=== PATIENT | female | born 1985 | race Caucasian/White ===

== ENCOUNTER 2020-03-16 13:25 | Emergency (ER) | payer SELFPAY ==
[2020-03-16 14:58] LABS: Absolute Lymphocytes (CBC) 1.5 K/uL (0.7-4.9); Basophils % 0.4 % (0-1.3); Lymphocytes % 14.4 % (15.3-44.8); MPV 7.2 fL (7.6-11.3); RBC Red Blood Cell Count 3.67 M/uL (3.86-4.86)
[2020-03-16 15:10] LABS: ALT/SGPT 18 U/L (12-78); AST/SGOT 22 U/L (15-37); Albumin 3.7 g/dL (3.4-5.0); Alkaline Phosphatase 72 U/L (45-117); BUN Blood Urea Nitrogen 11 mg/dL (7-18); Bicarbonate 27 mmol/L (21-32); Bilirubin Direct 0.3 mg/dL (0-0.2); Bilirubin Total 0.3 mg/dL (0.2-1.0); Glucose Level 93 mg/dL (74-106); Lipase 109 U/L (73-393); Potassium 4.1 mmol/L (3.5-5.1); Protein, Total 7.6 g/dL (6.4-8.2); Sodium Level 140 mmol/L (136-145)
[2020-03-16] MEDS ORDERED: FAMOTIDINE 20 MG/2 ML VIAL IV ONE (15:15)
--- NOTE | 2020-03-16 16:45 | RAD REPORT ---
EXAM DESCRIPTION: CTAbdomen Pelvis W Contrast - 03/16/2020 4:33 pm CLINICAL HISTORY: Abdominal pain. Abd pain;GI bleed COMPARISON: No comparisons TECHNIQUE: Biphasic CT imaging of the abdomen and pelvis was performed with 100 ml non-ionic IV cont rast. All CT scans are performed using dose optimization technique as appropriate and may include automated exposure control or mA/KV adjustment according to patient size. FINDINGS: The lung bases are clear.Postsurgical changes gastric bypass noted. Cholecystectomy. The liver, spleen, pancreas, adrenal glands and kidneys are within normal limits. No bowel obstruction, free air, free fluid or abscess. The appendix is normal. No evidence of signi ficant lymphadenopathy. No suspicious bony findings. IMPRESSION: No acute intra-abdominal or pelvic finding.
[2020-03-16 16:52] LABS: Urine Blood NEGATIVE (NEG); Urine Glucose NEGATIVE (NEG); Urine Protein NEGATIVE (NEG); Urine Specific Gravity 1.025 (1.005-1.030)
--- NOTE | 2020-03-16 17:20 | EDPHYS ---
Physician Documentation [facility] Name: Sissy Brown Age: 34 yrs Sex: Female : 1985 Arrival Date: 03/16/2020 Time: 13:33 Bed 17 Private MD: ED Physician Santos Man HPI: 03/16 17:39 This 34 yrs old Female presents to ER via Ambulatory with complaints of kdr Abnormal Lab Results, Black/Tarry Stools. 17:39 The patient presents to the emergency department with rectal bleeding, a moderate kdr amount, melena, with multiple such episodes, 5 times since symptom onset. Onset: The symptoms/episode began/occurred 2 day(s) ago. Abdominal pain: described as achy, burning, crampy, intermittent, waxing and waning, located in the epigastric area, that does not radiate. Modifying factors: The symptoms are alleviated by nothing, the symptoms are aggravated by nothing. Associated signs and symptoms: Pertinent positives: General malaise. Severity of symptoms: At their worst the symptoms were mild just prior to arrival, in the emergency department the symptoms are unchanged. The patient has experienced similar episodes in the past, a few times. The patient has been recently seen by a physician: the patient's primary care provider, had blood draw earlier in the week and noted a 9.0 Hgb. Historical: - Allergies: 13:46 Azithromycin; ll1 13:46 ersidol; ll1 - PMHx: 13:46 bleeding ulcer; ll1 - PSHx: 13:46 Cholecystectomy; ll1 - Immunization history:: Flu vaccine is not up to date. - Social history:: Smoking status: Patient denies any tobacco usage or history of. ROS: 17:39 Constitutional: Negative for fever, chills, and weight loss, Eyes: Negative for injury, kdr pain, redness, and discharge, ENT: Negative for injury, pain, and discharge, Neck: Negative for injury, pain, and swelling, Cardiovascular: Negative for chest pain, palpitations, and edema, Respiratory: Negative for shortness of breath, cough, wheezing, and pleuritic chest pain, Back: Negative for injury and pain, : Negative for injury, bleeding, discharge, and swelling, MS/Extremity: Negative for injury and deformity, Skin: Negative for injury, rash, and discoloration, Neuro: Negative for headache, weakness, numbness, tingling, and seizure activity. Psych: Negative for depression, anxiety, suicide ideation, homicidal ideation, and hallucinations, Allergy/Immunology: Negative for hives, rash, and allergies, Endocrine: Negative for neck swelling, polydipsia, polyuria, polyphagia, and marked weight changes, Hematologic/Lymphatic: Negative for swollen nodes, abnormal bleeding, and unusual bruising. 17:39 Abdomen/GI: Positive for abdominal pain, nausea, abdominal cramps, black/tarry stool, rectal bleeding, Negative for vomiting, abdominal distension, dysphagia, hematemesis, bowel incontinence. Exam: 17:39 Constitutional: This is a well developed, well nourished patient who is awake, alert, kdr and in no acute distress. Head/Face: Normocephalic, atraumatic. Eyes: Pupils equal round and reactive to light, extra-ocular motions intact. Lids and lashes normal. Conjunctiva and sclera are non-icteric and not injected. Cornea within normal limits. Periorbital areas with no swelling, redness, or edema. Neck: Trachea midline, no thyromegaly or masses palpated, and no cervical lymphadenopathy. Supple, full range of motion without nuchal rigidity, or vertebral point tenderness. No Meningismus. Chest/axilla: Normal chest wall appearance and motion. Nontender with no deformity. No lesions are appreciated. Cardiovascular: Regular rate and rhythm with a normal S1 and S2. No gallops, murmurs, or rubs. Normal PMI, no JVD. No pulse deficits. Respiratory: Lungs have equal breath sounds bilaterally, clear to auscultation and percussion. No rales, rhonchi or wheezes noted. No increased work of breathing, no retractions or nasal flaring. Back: No spinal tenderness. No costovertebral tenderness. Full range of motion. Skin: Warm, dry with normal turgor. Normal color with no rashes, no lesions, and no evidence of cellulitis. MS/ Extremity: Pulses equal, no cyanosis. Neurovascular intact. Full, normal range of motion. Neuro: Awake and alert, GCS 15, oriented to person, place, time, and situation. Cranial nerves II-XII grossly intact. Motor strength 5/5 in all extremities. Sensory grossly intact. Cerebellar exam normal. Normal gait. Psych: Awake, alert, with orientation to person, place and time. Behavior, mood, and affect are within normal limits. 17:39 Abdomen/GI: Inspection: abdomen appears normal, Bowel sounds: diminished, in all quadrants, Palpation: soft, mild abdominal tenderness, in the epigastric area, Rectal exam: rectal tone normal, Stool: guaiac positive, hemorrhoid(s), are not appreciated, mass, is not appreciated, swelling, is not appreciated, tenderness, is not appreciated. Vital Signs: 13:43 Pulse 93; Resp 16; Temp 99.3; Pulse Ox 98% ; ll1 13:46 BP 144 / 106; Weight 65.77 kg; Height 5 ft. 4 in. (162.56 cm); Pain 0/10; ll1 14:50 BP 147 / 90; Pulse 86; Resp 14; Pulse Ox 100% on R/A; vg1 16:00 BP 147 / 92; Pulse 93; Resp 16; Pulse Ox 100% on R/A; vg1 17:00 BP 148 / 92; Pulse 80; Resp 14; Pulse Ox 100% on R/A; vg1 13:46 Body Mass Index 24.89 (65.77 kg, 162.56 cm) ll1 MDM: 17:19 Patient medically screened. kdr 17:39 Data reviewed: vital signs, nurses notes, lab test result(s), radiologic studies. kdr Counseling: I had a detailed discussion with the patient and/or guardian regarding: the historical points, exam findings, and any diagnostic results supporting the discharge/admit diagnosis, lab results, radiology results, the need for outpatient follow up. 03/16 14:32 Order name: Basic Metabolic Panel; Complete Time: 15:53 kdr 03/16 14:32 Order name: CBC with Diff; Complete Time: 15:53 kdr 03/16 14:32 Order name: Hepatic Function; Complete Time: 15:53 kdr 03/16 14:32 Order name: Lipase; Complete Time: 15:53 kdr 03/16 14:32 Order name: Type And Screen; Complete Time: 15:53 kdr 03/16 15:53 Order name: Occult Blood--Ancillary; Complete Time: 17:18 sv 03/16 14:32 Order name: IV Saline Lock; Complete Time: 14:50 kdr 03/16 15:56 Order name: CT Abd/Pelvis - IV Contrast Only; Complete Time: 17:18 kdr 03/16 16:33 Order name: Urine Dipstick--Ancillary (enter results); Complete Time: 17:18 eb 03/16 16:33 Order name: Urine --Ancillary (enter results); Complete Time: 17:18 eb 03/16 17:36 Order name: ABO/RH no charge [facility] 03/16 14:32 Order name: Labs collected and sent; Complete Time: 14:50 kdr Administered Medications: 15:04 Drug: Pepcid 20 mg Route: IVP; Site: right wrist; vg1 17:51 Follow up: Response: No adverse reaction vg1 17:52 Drug: Tylenol 650 mg Route: PO; vg1 17:52 Follow up: Response: Medication administered at discharge. vg1 17:52 Drug: Zofran (Ondansetron) 4 mg Route: IVP; Site: right wrist; vg1 17:52 Follow up: Response: Medication administered at discharge. vg1 Disposition: 03/16/20 17:19 Discharged to Home. Impression: Melena, Upper GI Bleed. - Condition is Stable. - Discharge Instructions: Gastrointestinal Bleeding, [id number]. - Prescriptions for Protonix 40 mg Oral Tablet - take 1 tablet by ORAL route once daily; 30 tablet. Pepcid 20 mg Oral Tablet - take 1 tablet by ORAL route once daily; 20 tablet. Zofran 4 mg Oral Tablet - take 1 tablet by ORAL route every 4-6 hours As needed; 12 tablet. Tramadol 50 mg Oral Tablet - take 1 tablet by ORAL route every 8 hours as needed; 12 tablet. - Medication Reconciliation Form, Thank You Letter form. - Follow up: Private Physician; When: 2 - 3 days; Reason: If symptoms return, Further diagnostic work-up, Recheck today's complaints, Continuance of care, Re-evaluation by your physician. - Problem is an acute exacerbation. - Symptoms are unchanged. Signatures: Dispatcher [employer] [facility] Santos Man MD MD kdr Garcia, Victoria RN RN vg1 Eufemia Orr RN RN ll1 Corrections: (The following items were deleted from the chart) 17:53 17:19 03/16/2020 17:19 Discharged to Home. Impression: Melena; Upper GI Bleed. vg1 Condition is Stable. Forms are Medication Reconciliation Form, Thank You Letter, Antibiotic Education, Prescription Opioid Use. Follow up: Private Physician; When: 2 - 3 days; Reason: If symptoms return, Further diagnostic work-up, Recheck today's complaints, Continuance of care, Re-evaluation by your physician. Problem is an acute exacerbation. Symptoms are unchanged. kdr
--- NOTE | 2020-03-16 17:20 | ER ---
Nurse's Notes [facility] Name: Sissy Brown Age: 34 yrs Sex: Female : 1985 Arrival Date: 03/16/2020 Time: 13:33 Bed 17 Private MD: Diagnosis: Melena;Upper GI Bleed Presentation: 03/16 13:43 Chief complaint: Patient states: Black stools today. Weak and fatigued for 2 days. HGB ll1 9 on Wednesday. Coronavirus screen: Client denies travel out of the [place] in the last 14 days. At this time, the client does not indicate any symptoms associated with coronavirus-19. Ebola Screen: Patient denies travel to an Ebola-affected area in the 21 days before illness onset. Initial Sepsis Screen: Does the patient meet any 2 criteria? HR > 90 bpm. No. Patient's initial sepsis screen is negative. Does the patient have a suspected source of infection? Yes: Acute abdominal pain. Risk Assessment: Do you want to hurt yourself or someone else? Patient reports no desire to harm self or others. Onset of symptoms was March 15, 2020. 13:43 Method Of Arrival: Ambulatory ll1 13:43 Acuity: SANTIAG[place] 3 ll1 Historical: - Allergies: 13:46 Azithromycin; ll1 13:46 ersidol; ll1 - PMHx: 13:46 bleeding ulcer; ll1 - PSHx: 13:46 Cholecystectomy; ll1 - Immunization history:: Flu vaccine is not up to date. - Social history:: Smoking status: Patient denies any tobacco usage or history of. Screenin:57 Abuse screen: Denies threats or abuse. Nutritional screening: No deficits noted. vg1 Tuberculosis screening: No symptoms or risk factors identified. Fall Risk None identified. Assessment: 14:50 General: Appears in no apparent distress. comfortable, Behavior is calm, cooperative. vg1 Pain: Complains of pain in epigastric area and right upper quadrant Pain at worst was 4 out of 10 on a pain scale. Neuro: Level of Consciousness is awake, alert, obeys commands, Oriented to person, place, time, situation. Cardiovascular: Patient's skin is warm and dry. Respiratory: Airway is patent Respiratory effort is even, unlabored. GI: Abdomen is flat, Bowel sounds present X 4 quads. Abd is soft X 4 quads Abdomen is tender to palpation in epigastric area and right upper quadrant Reports nausea, Patient currently denies vomiting. : No signs and/or symptoms were reported regarding the genitourinary system. EENT: No signs and/or symptoms were reported regarding the EENT system. Derm: Skin is intact, is healthy with good turgor. Musculoskeletal: Circulation, motion, and sensation intact. 17:18 Reassessment: Patient appears in no apparent distress at this time. Patient and/or vg1 family updated on plan of care and expected duration. Pain level reassessed. Patient is alert, oriented x 3, equal unlabored respirations, skin warm/dry/pink. Patient states has a headache and would like some Tylenol also stated is feeling a little nauseated. Provider Notified. 17:50 Reassessment: Received VO from Dr Estrada to administer Tylenol 650 mg PO x1 and Zofran vg1 4mg IVP x1. Vital Signs: 13:43 Pulse 93; Resp 16; Temp 99.3; Pulse Ox 98% ; ll1 13:46 BP 144 / 106; Weight 65.77 kg; Height 5 ft. 4 in. (162.56 cm); Pain 0/10; ll1 14:50 BP 147 / 90; Pulse 86; Resp 14; Pulse Ox 100% on R/A; vg1 16:00 BP 147 / 92; Pulse 93; Resp 16; Pulse Ox 100% on R/A; vg1 17:00 BP 148 / 92; Pulse 80; Resp 14; Pulse Ox 100% on R/A; vg1 13:46 Body Mass Index 24.89 (65.77 kg, 162.56 cm) ll1 ED Course: 13:33 Patient arrived in ED. rg4 13:45 Triage completed. ll1 13:46 Arm band placed on. ll1 14:31 Santos Man MD is Attending Physician. kdr 14:35 Mamta Macario RN is Primary Nurse. vg1 14:38 Initial lab(s) drawn, by me, sent to lab. T\T\S collected, blood band applied to patient. jp3 Inserted saline lock: 20 gauge in right wrist, using aseptic technique. Blood collected. Patient maintains SpO2 saturation greater than 95% on room air. 14:49 Bed in low position. Call light in reach. Side rails up X 1. Warm blanket given. Verbal jp3 reassurance given. Pulse ox on. NIBP on. 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 sv 16:[address] via wheelchair. vg1 16:33 CT Abd/Pelvis - IV Contrast Only In Process Unspecified. EDMS 16:35 CT completed. Patient tolerated procedure well. Patient moved back from CT. mw3 17:53 IV discontinued, intact, bleeding controlled, No redness/swelling at site. Pressure vg1 dressing applied. Administered Medications: 15:04 Drug: Pepcid 20 mg Route: IVP; Site: right wrist; vg1 17:51 Follow up: Response: No adverse reaction vg1 17:52 Drug: Tylenol 650 mg Route: PO; vg1 17:52 Follow up: Response: Medication administered at discharge. vg1 17:52 Drug: Zofran (Ondansetron) 4 mg Route: IVP; Site: right wrist; vg1 17:52 Follow up: Response: Medication administered at discharge. vg1 Outcome: 17:19 Discharge ordered by . kdr 17:53 Discharged to home vg1 17:53 Discharged to home ambulatory. 17:53 Condition: stable 17:53 Discharge instructions given to patient, Instructed on discharge instructions, follow up and referral plans. medication usage, Demonstrated understanding of instructions, follow-up care, medications, Prescriptions given X 4. 17:53 Patient left the ED. vg1 Signatures: Dispatcher [employer] EDMS Mi Morales RN RN sv Rittger, Kevin, MD MD kdr Garcia, Rubi rg4 Patricia Brush mw3 Renato Ramirez jp3 Mamta Macario RN RN vg1 Eufemia Orr RN RN ll1
[2020-03-16] MEDS ORDERED: ONDANSETRON 4 MG/2 ML VIAL ONE (17:42)
[2020-03-16] MEDS ORDERED: ACETAMINOPHEN 325 MG TABLET ONE (17:42)
[2020-03-16 18:01] VITALS: TEMP 99.3
[2020-03-16 18:03] VITALS: O2SAT 100
[2020-03-16 18:06] VITALS: BP 148/92
== END 2020-03-16 17:53 | disposition home or self-care (01) ==
LOC: ER 13:25
DX: K92.2 Gastrointestinal hemorrhage, unspecified (principal); Z88.1 Allergy status to other antibiotic agents; Z88.8 Allergy status to other drugs, medicaments and biological substances
CPT/HCPCS: 36415; 74177; 80048; 80076; 81003; 81025; 82272; 83690; 85025; 86850; 86900; 86901; 96374; 96375; 99285; J2405; Q9967

== ENCOUNTER 2020-07-22 16:56 | Inpatient (IN) | payer SELFPAY ==
--- OUTSIDE RECORDS SUMMARY | 2020-07-22 16:58 | XMS REPORT | Continuity of Care Document ---
:1985 Author Organization Formerly [facility] t Address [address] [place] [address] Care Team Providers Name Role Phone Dhruv Antonina Attending Clinician [phone] Problems This patient has no known problems. Allergies, Adverse Reactions, Alerts Allergy Allergy Status Severity Reaction(s) Onset Inactive Treating Comm ents Source Name Type Date Date Clinician KEFLEX Drug Active High hives, [facility] allergy Criticali throws up. 09-03 Co [facility]muni (disorde ty 00:00: ty r) 00 Health ZITHROMA Drug Active High hives [facility] X allergy Criticali 09-03 Commun i (disorde ty 00:00: ty r) 00 Health Social History Social Habit Start Date Stop Date Quantity Comments Source albumin, serum 2020-03-11 2020-03-11 4.4 g/dL [facility] 11:44:00 11:44:00 Health time of call 2020-03-08 2020-03-08 03/08/2020 10:32 AM [facility] Community 10:32:47 10:32:47 Health tobacco use 2019-12-06 2019-12-06 Currently [facility] (cigarettes, 17:43:03 17:43:03 Health cigar, chew, pipe) drug use 2019-09-04 2019-09-04 Never [facility] ty 09:50:41 09:50:41 Health alcohol use 2019-09-04 2019-09-04 Previously [facility] 09:50:41 09:50:41 Health if the patient is 2019-09-04 2019-09-04 No [facility] using/has used a 09:50:41 09:50:41 Health vaping item, Current, Former, Never Used, Not asked social history 2019-09-04 2019-09-04 reviewed today [facility] reviewed E&M 09:50:41 09:50:41 Health social history E&M 2019-09-04 2019-09-04 Pt's mom lives in [facility] 09:50:41 09:50:41 [place] pt's Health dad lives in [place] but does not have a relationship with them. Pt talks with her brothers every now and then.She is 1 of 3 siblings, middle child. for 10 years, 2 oldest children from first marriage. He (they were , medical issues). Pt lives with her three kids (12, 11, 2) and boyfriend. In [place], [place]. Pt is unemployed. Pt has an associate degree with a medical assistance certificate.Sexual orientation: Heterosexual. Pt likes to spend time with her kids, listen to music, likes to dance. The patient denies any hx of legal problems, or current problems with the law. Not mu-ism. sexual orientation 2019-09-04 2019-09-04 Heterosexual [facility] 09:50:41 09:50:41 Health home/family 2019-09-04 2019-09-04 Pt lives with her [facility] situation, 09:50:41 09:50:41 three kids (12, 11, Healt h assessment 2) and boyfriend. In [place], [place]. family support 2019-09-04 2019-09-04 Pt's mom lives in [facility] 09:50:41 09:50:41 [place] pt's Health dad lives in [place] but does not have a relationship with them. Pt talks with her brothers every now and then.She is 1 of 3 siblings, middle child. for 10 years, 2 oldest children from first marriage. He (they were , medical issues). Smoking Status Start Date Stop Date Source Never smoked tobacco (finding) [facility] Medications Ordered Filled Start Stop Current Ordering Indication Dosage Frequency Signature Comments Components Source Medication Medication Date Date Medication? Clinician (SIG) Name Name (CLONAZEPAM Yes Chun Sarkar Take 1/2 [facility] ) 0.5 MG 9 Dhruv -1 tab by Co mmuni TABS 00:00: mouth ty 00 daily only Health as needed for anxiety. PROZAC 2019- Yes Chun Sarkar 1{Capsu 1xD Take 1 [facility] (FLUOXETINE 10-31 Dhruv le} capsule by Communi HCL) 20 MG 00:00: mouth ty CAPS 00 daily for Health a total dose of 30mg/day. PROZAC 2019- Yes Chun Sarkar Take 1 Leg acy (FLUOXETINE - Dhruv capsule by Communi HCL) 10 MG 00:00: mouth ty CAPS 00 daily for Health a total dose of 30mg/day. (HYDROXYZIN 2020- No Chun Sarkar Take 1/2-1 [facility] E HCL) 25 09-03 Dhruv tab by Com cecilia MG TABS 00:00: 00:00 mouth ty 00 :00 twice a Health day only as needed for anxiety or sleep. PROZAC 2020- No Chun Sarkar 2{Capsu 1xD Take 2 [facility] (FLUOXETINE 09-03 Dhruv le} capsules Communi HCL) 10 MG 00:00: 00:00 by mouth ty CAPS 00 :00 daily. Health Procedures Procedure Date / Time Performed Performing Clinician [facility] e Urine Drug 2020-02-20 15:52:59 Chun Bartlett [facility] Vnhseh-Ld-Kzdtk Health Diagnostic evaluation 2019-09-04 10:46:41 Chun Bartlett [facility] with medical - [id number] Health Encounters Start End Encounter Admission Attending Care Care Encounter Source Date/Time Date/Time Type Type Clinicians Facility Department ID 2020-05-09 2020-05-09 Office Dhruv [facility] [place] [id number] 02 [facility] 00:00:00 00:00:00 Visit Chun Sarkar [id number] Com cecilia ty Health 2020-04-18 2020-04-18 Office Dhruv [facility] [place] [id number] [facility] 00:00:00 00:00:00 Visit Chun Sarkar [id number] Com cecilia ty Health 2020-04-02 2020-04-02 Emergency [facility] [id number] 21:24:00 21:25:00 [place] [id number] [place] [id number] [place] [id number] 2020-02-20 2020-02-20 Office Dhruv [facility] [place] [id number] [facility] 00:00:00 00:00:00 Visit Chun Sarkar [id number] Com cecilia ty Health 2020-01-16 2020-01-16 Office Dhruv [facility] [place] [id number] [facility] 00:00:00 00:00:00 Visit Chun Sarkar [id number] Com cecilia ty Health 2019-12-06 2019-12-06 Office Dhruv [facility] [place] [id number] [facility] 00:00:00 00:00:00 Visit Chun Sarkar [id number] Com cecilia ty Health 2019-11-01 2019-11-[address] [facility] [id number] [facility] 00:00:00 00:00:00 Visit Chun Sarkar [id number] Com cecilia ty Health 2019-09-04 2019-09-[address] [facility] [id number] [facility] 00:00:00 00:00:00 Visit Chun Sarkar [id number] Com [facility] Health Results Test Description Test Time Test Comments Results Result Comments Source thyroid stimulating hormone, serum 2020-03-11 11:44:00 Test Item Value Reference Range Interpretation Comme nts thyroid stimulating hormone, serum (test code = 0.992 u[IU]/mL 0.45 0-4.500 3016-3) [facility] [id number] 11:44:00 Test Item Value Reference Range Interpretation Comments LDL cholesterol, serum (test code = 50 mg/dL 0-99 9-1) [facility] low density [id number] 11:44:00 Test Item Value Reference Range Interpretation Comments very low density lipoproteins (test 21 mg/dL 5-40 code = 2091-7) [facility], [id number] 11:44:00 Test Item Value Reference Range Interpretation Comments HDL cholesterol, serum (test code = 86 mg/dL >39 5-9) [facility], serum, [id number] 11:44:00 Test Item Value Reference Range Interpretation Comments triglyceride, serum, fasting (test 122 mg/dL 0-149 code = 2571-8) [facility], [id number] 11:44:00 Test Item Value Reference Range Interpretation Comments cholesterol, serum (test code = 157 mg/dL 747-985 3636-3) [facility] Healthalanine aminotransferase (SGPT), [id number] 11:44:00 Test Item Value Reference Range Interpretation Comments alanine aminotransferase (SGPT), serum 11 1/L 0-32 (test code = 1742-6) [facility]aspartate aminotransferase (SGOT), [id number] 11:44:00 Test Item Value Reference Range Interpretation Comments aspartate aminotransferase (SGOT), 17 1/L 0-40 serum (test code = 1920-8) [facility]alkaline phosphatase, [id number] 11:44:00 Test Item Value Reference Range Interpretation Comments alkaline phosphatase, serum (test code 81 1/L 39-117 = 1783-0) [facility]bilirubin, serum, [id number] 11:44:00 Test Item Value Reference Range Interpretation Comments bilirubin, serum, total (test code <0.2 mg/dL 0.0-1.2 = 1975-2) [facility] Healthalbumin/globulin ratio, [id number] 11:44:00 Test Item Value Reference Range Interpretation Comments albumin/globulin ratio, 1.6 (unknown unit) 1.2-2.2 serum (test code = 1759-0) [facility] Healthglobulin, [id number] 11:44:00 Test Item Value Reference Range Interpretation Comments globulin, serum (test code 2.7 (unknown unit) 1.5-4.5 = 2336-6) [facility] Healthalbumin, [id number] 11:44:00 Test Item Value Reference Range Interpretation Comments albumin, serum (test code = 1751-7) 4.4 g/dL 3.8-4.8 [facility] Healthprotein, total, [id number] 11:44:00 Test Item Value Reference Range Interpretation Comments protein, total, serum (test code = 7.1 g/dL 6.0-8.5 2885-2) [facility]calcium, [id number] 11:44:00 Test Item Value Reference Range Interpretation Comments calcium, serum (test code = 1999-8) 9.0 mg/dL 8.7-10.2 [facility]carbon dioxide, venous [id number] 11:44:00 Test Item Value Reference Range Interpretation Comments carbon dioxide, venous blood (test 23 mmol/L 20- code = 2027-1) [facility]chloride, [id number] 11:44:00 Test Item Value Reference Range Interpretation Comments chloride, serum (test code = 101 mmol/L 96-106 2075-0) [facility]potassium, [id number] 11:44:00 Test Item Value Reference Range Interpretation Comments potassium, serum (test code = 4.4 mmol/L 3.5-5.2 2823-3) [facility] Hospitalsodium, [id number] 11:44:00 Test Item Value Reference Range Interpretation Comments sodium, serum (test code = 2951-2) 140 mmol/L 134-144 [facility] Hospitalurea nitrogen/creatinine ratio, [id number] 11:44:00 Test Item Value Reference Range Interpretation Comments urea nitrogen/creatinine 11 (unknown unit) 9-23 ratio, serum (test code = 3097-3) [facility] HealtheGFR if [id number] 11:44:00 Test Item Value Reference Range Interpretation Comments eGFR if 133 mL/min/{1.73 m2} >59 (test code = 15646-9) [facility] HospitalEstimated Glomerular Filtration Rate (calc)2020-03-11 11:44:00 Test Item Value Reference Range Interpretation Comments Estimated Glomerular 115 mL/min/{1.73 m2} >59 Filtration Rate (calc) (test code = 84253-8) [facility]creatinine, [id number] 11:44:00 Test Item Value Reference Range Interpretation Comments creatinine, serum (test code = 0.70 mg/dL 0.57-1.00 2160-0) [facility]urea nitrogen, [id number] 11:44:00 Test Item Value Reference Range Interpretation Comments urea nitrogen, blood (test code = 8 mg/dL 6-20 3094-0) [facility]blood glucose, [id number] 11:44:00 Test Item Value Reference Range Interpretation Comments blood glucose, random (test code = 93 mg/dL 65-99 2339-0) [facility] Hospitalimmature granulocytes, percentage of total cells, blood 2020-03-11 11:44:00 Test Item Value Reference Range Interpretation Comments immature granulocytes, percentage of 0 % total cells, blood (test code = 90014-2) [facility] Healthbasophil count, [id number] 11:44:00 Test Item Value Reference Range Interpretation Comments basophil count, absolute (test 0.0 x10E3/uL 0.0-0.2 code = 25654-4) [facility] HealthEosinophil Absolute [id number] 11:44:00 Test Item Value Reference Range Interpretation Comments Eosinophil Absolute Count (test 0.0 X10E3/UL 0.0-0.4 code = 15182-0) [facility] Hospitalmonocyte count, blood, [id number] 11:44:00 Test Item Value Reference Range Interpretation Comments monocyte count, blood, automated 0.8 X10E3/UL 0.1-0.9 (test code = 742-7) [facility] Hospitallymphocyte count, blood, [id number] 11:44:00 Test Item Value Reference Range Interpretation Comments lymphocyte count, blood, 2.0 X10E3/UL 0.7-3.1 automated (test code = 731-0) [facility] HospitalAbsolute [id number] 11:44:00 Test Item Value Reference Range Interpretation Comments Absolute Neutrophils (test code 7.5 X10E3/UL 1.4-7.0 H = 22394-5) [facility] Hospitalbasophils as percent of blood [id number] 11:44:00 Test Item Value Reference Range Interpretation Comments basophils as percent of blood 0 % leukocytes (test code = 707-0) [facility] Healtheosinophils as percent of blood waowrribjh0317-28-04 11:44:00 Test Item Value Reference Range Interpretation Comments eosinophils as percent of blood 0 % leukocytes (test code = 713-8) [facility] Healthmonocytes as percent of blood [id number] 11:44:00 Test Item Value Reference Range Interpretation Comments monocytes as percent of blood 8 % leukocytes (test code = 5905-5) [facility] Hospitallymphocytes as percent of blood [id number] 11:44:00 Test Item Value Reference Range Interpretation Comments lymphocytes as percent of blood 19 % leukocytes (test code = 736-9) [facility] Hospitalneutrophils as percent of blood [id number] 11:44:00 Test Item Value Reference Range Interpretation Comments neutrophils as percent of blood 73 % leukocytes (test code = 770-8) [facility] Hospitalplatelet [id number] 11:44:00 Test Item Value Reference Range Interpretation Comments platelet count (test code = 434 X10E3/UL 150-450 777-3) [facility] Hospitalred blood cell distribution [id number] 11:44:00 Test Item Value Reference Range Interpretation Comments red blood cell distribution width 16.0 % 11.7-15.4 H (test code = 788-0) [facility] corpuscular hemoglobin concentration, [id number] 11:44:00 Test Item Value Reference Range Interpretation Comments mean corpuscular hemoglobin 30.3 G/DL 31.5-35.7 L concentration, RBC (test code = 786-4) [facility] corpuscular hemoglobin, [id number] 11:44:00 Test Item Value Reference Range Interpretation Comments mean corpuscular hemoglobin, RBC 23.3 pg 26.6-33.0 L (test code = 785-6) [facility] corpuscular volume, [id number] 11:44:00 Test Item Value Reference Range Interpretation Comments mean corpuscular volume, RBC (test code 77 fL 79-97 L = 787-2) [facility] Hospitalhematocrit, [id number] 11:44:00 Test Item Value Reference Range Interpretation Comments hematocrit, blood (test code = 4544-3) 29.7 % 34.0-46.6 L [facility] Hospitalhemoglobin, [id number] 11:44:00 Test Item Value Reference Range Interpretation Comments hemoglobin, blood (test code = 9.0 g/dL 11.1-15.9 L 718-7) [facility] Hospitalerythrocyte (RBC) [id number] 11:44:00 Test Item Value Reference Range Interpretation Comments erythrocyte (RBC) count (test 3.87 X10E6/UL 3.77-5.28 code = 789-8) [facility] Hospitalleukocyte count, [id number] 11:44:00 Test Item Value Reference Range Interpretation Comments leukocyte count, blood (test 10.4 X10E3/UL 3.4-10.8 code = 6690-2) [facility] HospitalUS PREG 1ST TRIM SINGLE LESS THAN 14 WEEKSCLINICAL INDICATION: O20.0 Threatened abortionTECHNIQUE: Transabdominal and transvaginal real time and doppler imaging of the female gravid pelvis are performed on the [employer].COMPARISON: 10/05/2016. FINDINGS:Uterus: 10.6 x 6.2 x 6.9 cm. Single viable IUP with crown rump length of 8.5 cm consistent with a gestational age of 7 weeks. Mean sac diameter consistent with a gestational age of 9 weeks, 5 days. Normal intrauterine growth compared to 10/05/2016. heart rate is measured at 122 beats per minute.Right Ovary: 2.8 x 2.5 x 3.3 cm.Left Ovary: 2.6 x 2.4 x 2.9 cm.Adnexa: No free fluid or adnexal mass.IMPRESSION:Single viable IUP of approximately 7 weeks gestation.US PREG 1ST TRIM SINGLE LESS THAN 14 WEEKSAddendum created at 10/08/2016 11:58:45 AM:Correction:The right ovary measures 3.0 x 2.5 x 1.8 cm.Addendum by: Timmy Martin, MDCLINICAL INDICATION: O20.0 Threatened abortionFINDINGS:COMPARISON STUDY: NoneTransvaginal evaluation was of the pelvis is performed.The uterus measures 11.1 cm in length and 6.6 x 5.5 cm in transverse dimension.There is a solitary intrauterine gestational sac. Yolk sac is present. There is no pole. No subchorionic hemorrhage. Based upon gestational sac mean diameter, the estimated menstrual age is 6 weeks 2 days.The right ovary measures 3.0 x 2.50 point 8 cm.The left ovary measures 2.7 x 2.0 x 1.9 cm. There are several small ovarian follicles bilaterally. No ovarian cyst or mass is noted.There is no mass or fluid collection within the cul-de-sac.Please correlate this clinically and obtain clinical, laboratory and sonographic follow-up as indicated.IMPRESSION:9-vrwz-2-day intrauterine gestational sac. pole is not identified. See comments.
[2020-07-22] MEDS ORDERED: ACETAMINOPHEN 500 MG TAB ONE (17:35)
[2020-07-22 18:01] LABS: Absolute Lymphocytes (CBC) 0.8 K/uL (0.7-4.9); Basophils % 0.2 % (0-1.3); Hematocrit 34.4 % (36.0-45.0); Lymphocytes % 3.2 % (15.3-44.8); RBC Red Blood Cell Count 4.06 M/uL (3.86-4.86)
[2020-07-22] MEDS ORDERED: MORPHINE 4 MG/ML SYR ONE (18:07)
[2020-07-22] MEDS ORDERED: ONDANSETRON 4 MG/2 ML VIAL ONE (18:07)
[2020-07-22] MEDS ORDERED: NA CHLORIDE 0.9% 2,000 ML ONE (18:07)
[2020-07-22 18:17] LABS: Protime INR 1.28
[2020-07-22 18:23] LABS: ALT/SGPT 19 U/L (12-78); AST/SGOT 9 U/L (15-37); Albumin 3.7 g/dL (3.4-5.0); Alkaline Phosphatase 113 U/L (45-117); Amylase 29 U/L (25-115); BUN Blood Urea Nitrogen 10 mg/dL (7-18); Bicarbonate 21 mmol/L (21-32); Bilirubin Direct 0.2 mg/dL (0-0.2); Bilirubin Total 0.7 mg/dL (0.2-1.0); CKMB Creatine Kinase MB < 1.0 ng/mL (0.3-3.6); Creatine Phosphokinase 68 U/L (26-192); Glucose Level 121 mg/dL (74-106); Lipase 61 U/L (73-393); Potassium 3.6 mmol/L (3.5-5.1); Protein, Total 8.5 g/dL (6.4-8.2); Sodium Level 134 mmol/L (136-145); Troponin (Emerg Dept Use Only) < 0.02 ng/mL (0.0-0.045)
[2020-07-22 18:40] LABS: Urine Blood 2+ (Negative); Urine Glucose Negative (Negative); Urine Protein 3+ (Negative); Urine Specific Gravity >=1.030 (1.005-1.030)
[2020-07-22] MEDS ORDERED: CEFEPIME/SWI 1gm 20 ML ONE (18:40)
[2020-07-22] MEDS ORDERED: NA CHLORIDE 0.9% 100 ML ONE (18:41)
--- NOTE | 2020-07-22 18:57 | RAD REPORT ---
EXAM DESCRIPTION: CTAbdomen Pelvis W Contrast - 07/22/2020 6:51 pm CLINICAL HISTORY: Abdominal pain. FLANK PAIN COMPARISON: Abdomen Pelvis W Contrast dated 03/16/2020 TECHNIQUE: Biphasic CT imaging of the abdomen and pelvis was performed with 100 ml non-ionic IV cont rast. All CT scans are performed using dose optimization technique as appropriate and may include automated exposure control or mA/KV adjustment according to patient size. FINDINGS: The lung bases are clear.Cholecystectomy clips. Postsurgical changes about the stomach is seen. The liver, spleen, pancreas, adrenal glands are within normal limits. Edematous appearance to both ki dneys present. No bowel obstruction, free air, free fluid or abscess. The appendix is normal. No evidence of signi ficant lymphadenopathy. No suspicious bony findings. IUD is present in the uterus. IMPRESSION: Edematous appearance to both kidneys is noted suspicious for bilateral pyelonephritis. N o perinephric abscess.
[2020-07-22 19:04] LABS: Urine Bacteria >50 /HPF (<20)
[2020-07-22 19:05] LABS: Urine RBC <5 /HPF (NONE SEEN); Urine Urothelial Cells <5 /HPF (NONE SEEN)
[2020-07-22 19:06] LABS: Urine Specific Gravity/Preg >1.030 (1.005-1.030)
[2020-07-22 19:12] LABS: Blood Morphology Comment NOT SEEN (NOT SEEN); Platelet Estimate INCR; White Blood Cell Scan OK (OK)
--- NOTE | 2020-07-22 19:31 | EDPHYS ---
Physician Documentation [facility] Name: Sissy Brown Age: 34 yrs Sex: Female : 1985 Arrival Date: 07/22/2020 Time: 16:59 Bed 20 Private MD: SANDRO Physician Sam Saucedo HPI: 07/22 21:23 This 34 yrs old Female presents to ER via Ambulatory with complaints of UTI, pm1 Dizziness, Flank Pain. 21:23 The patient presents with pain that is acute, with no known mechanism of injury. The pm1 symptoms are located in the low back. The pain does not radiate. The problem was sustained urinary tract infection. Onset: The symptoms/episode began/occurred 3 day(s) ago. Modifying factors: The patient symptoms are alleviated by nothing, the patient symptoms are aggravated by movement. Associated signs and symptoms: Pertinent positives: dysuria, fever, weakness, Dizziness. Severity of symptoms: in the emergency department the symptoms are actually worse. The patient has not experienced similar symptoms in the past. The patient has not recently seen a physician. 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 - Social history:: Smoking status: Patient denies any tobacco usage or history of. ROS: 21:23 Eyes: Negative for injury, pain, redness, and discharge, ENT: Negative for injury, pm1 pain, and discharge, Neck: Negative for injury, pain, and swelling, Cardiovascular: Negative for chest pain, palpitations, and edema, Respiratory: Negative for shortness of breath, cough, wheezing, and pleuritic chest pain. 21:23 MS/Extremity: Negative for injury and deformity, Skin: Negative for injury, rash, and discoloration. 21:23 Constitutional: Positive for body aches, fever, poor PO intake. 21:23 Abdomen/GI: Positive for abdominal pain, nausea and vomiting, of the suprapubic area, right lower quadrant and left lower quadrant, Negative for diarrhea, constipation. 21:23 Back: Positive for flank pain, bilaterally. 21:23 : Positive for urinary symptoms, flank pain. 21:23 Neuro: Positive for dizziness, generalized weakness, Negative for numbness, tingling. Exam: 21:23 Constitutional: This is a well developed, well nourished patient who is awake, alert, pm1 and in no acute distress. Head/Face: Normocephalic, atraumatic. Eyes: Pupils equal round and reactive to light, extra-ocular motions intact. Lids and lashes normal. Conjunctiva and sclera are non-icteric and not injected. Cornea within normal limits. Periorbital areas with no swelling, redness, or edema. 21:23 Skin: Warm, dry with normal turgor. Normal color with no rashes, no lesions, and no evidence of cellulitis. MS/ Extremity: Pulses equal, no cyanosis. Neurovascular intact. Full, normal range of motion. 21:23 ENT: Mouth: is normal, Lips: normal, moist, Oral mucosa: normal, pink and intact, moist, Posterior pharynx: is normal, airway is patent, no erythema, no exudate. 21:23 Cardiovascular: Rate: tachycardic, Rhythm: regular, Pulses: no pulse deficits are appreciated, Heart sounds: normal, normal S1and S2, Edema: is not appreciated. 21:23 Respiratory: Exam negative for acute changes, respiratory distress, shortness of breath, Breath sounds: are clear throughout. 21:23 Abdomen/GI: Inspection: abdomen appears normal, Palpation: soft, in all quadrants, mild abdominal tenderness, in the suprapubic area, right lower quadrant and left lower quadrant. 21:23 Back: pain, of the left low back and right low back. 21:23 Neuro: Exam negative for acute changes, Orientation: is normal, Mentation: is normal, Motor: is normal, moves all fours. Vital Signs: 17:03 BP 116 / 75; Pulse 108; Resp 20; Temp 102.9(O); Pulse Ox 97% on R/A; Weight 72.57 kg ca1 (R); Height 5 ft. 4 in. (162.56 cm) (R); Pain 6/10; 18:15 BP 114 / 67; Pulse 98; Resp 24 S; Pulse Ox 100% on R/A; jl7 19:01 BP 115 / 75; Pulse 96; Resp 17; Pulse Ox 99% ; 7 19:03 Temp 100.7; 7 20:00 BP 114 / 68; Pulse 102; Resp 16; Temp 98.7(O); Pulse Ox 100% on R/A; jm8 22:09 BP 116 / 75; Pulse 112; Resp 16; Pulse Ox 99% on R/A; 8 17:03 Body Mass Index 27.46 (72.57 kg, 162.56 cm) ca1 MDM: 17:16 Patient medically screened. pm1 19:27 Data reviewed: vital signs. Data interpreted: Pulse oximetry: on room air is 99 %. pm1 Interpretation: normal. 19:27 Counseling: I had a detailed discussion with the patient and/or guardian regarding: the pm1 historical points, exam findings, and any diagnostic results supporting the discharge/admit diagnosis, lab results, radiology results, the need for further work-up and treatment in the hospital. 07/22 17:19 Order name: Urine Culture pm1 07/22 17:19 Order name: Amylase, Serum; Complete Time: 18:56 pm07/22 17:19 Order name: Basic Metabolic Panel; Complete Time: 18:56 pm1 07/22 17:19 Order name: Blood Culture Adult (2) pm1 07/22 17:19 Order name: CBC with Diff; Complete Time: 19:17 pm07/22 17:19 Order name: Ckmb; Complete Time: 18:56 pm07/22 17:19 Order name: CPK; Complete Time: 18:56 pm07/22 17:19 Order name: Lactate; Complete Time: 18:56 pm07/22 17:19 Order name: LFT's; Complete Time: 18:56 pm1 07/22 17:19 Order name: Lipase; Complete Time: 18:56 pm1 07/22 17:19 Order name: Protime (+inr); Complete Time: 18:56 pm1 07/22 17:19 Order name: Ptt, Activated; Complete Time: 18:56 pm07/22 17:19 Order name: Troponin (emerg Dept Use Only); Complete Time: 18:56 pm07/22 17:19 Order name: Urine Test (obtain specimen); Complete Time: 18:39 pm1 07/22 17:19 Order name: Urine Microscopic Only; Complete Time: 19:17 pm1 07/22 17:19 Order name: CT Abd/Pelvis - IV Contrast Only; Complete Time: 18:59 pm1 07/22 17:20 Order name: Urine Culture EDAR 07/22 18:40 Order name: Urine Dipstick-Ancillary; Complete Time: 18:54 EDAR 07/22 18:44 Order name: Urine --Ancillary (enter results); Complete Time: 19:17 07/22 19:12 Order name: CBC Smear Scan; Complete Time: 19:17 EDAR 07/22 19:18 Order name: COVID-19 : Document "Date of Symptom Onset" if Symptomatic. pm1 07/22 21:10 Order name: SARS-COV-2 RT PCR; Complete Time: 21:22 EDAR 07/22 22:07 Order name: Lactate Sepsis 2 HR Follow-up [facility] 07/22 17:19 Order name: Cardiac monitoring; Complete Time: 19:18 pm1 07/22 17:19 Order name: EKG - Nurse/Tech; Complete Time: 19:18 pm1 07/22 17:19 Order name: IV Saline Lock - Large Bore; Complete Time: 18:40 pm1 07/22 17:19 Order name: Labs collected and sent; Complete Time: 18:40 pm1 07/22 17:19 Order name: O2 Per Protocol; Complete Time: 18:40 pm1 07/22 17:19 Order name: O2 Sat Monitoring; Complete Time: 18:40 pm1 07/22 17:19 Order name: Urine Dipstick-Ancillary (obtain specimen); Complete Time: 18:40 pm1 Administered Medications: 17:17 Drug: Tylenol 1000 mg Route: PO; ca1 19:00 Follow up: Response: No adverse reaction; Temperature is decreased jl7 22:11 Follow up: Response: No adverse reaction jm8 17:20 CANCELLED (Duplicate Order): Acetaminophen 1000 mg PO once pm1 17:43 Drug: NS 0.9% (30 ml/kg) 30 ml/kg Route: IV; Rate: bolus; Site: left antecubital; jl7 19:15 Follow up: Response: No adverse reaction; IV Status: Completed infusion; IV Intake: jl7 2177ml 17:43 Drug: Zofran (Ondansetron) 4 mg Route: IVP; Site: left antecubital; jl7 19:03 Follow up: Response: No adverse reaction jl7 17:45 Drug: morphine 4 mg Route: IVP; Site: left antecubital; jl7 18:00 Follow up: Response: No adverse reaction; Pain is decreased jl7 18:34 Drug: Cefepime 2 grams Route: IVPB; Rate: 200 ml/hr; Infused Over: 30 mins; Site: left jl7 antecubital; 19:04 Follow up: Response: No adverse reaction; IV Status: Completed infusion jl7 21:43 Follow up: IV Status: Completed infusion jm8 Disposition: 07/23 09:50 Co-signature as Attending Physician, Sam Saucedo MD I agree with the assessment and beatrice plan of care. Disposition: 07/22/20 19:30 Hospitalization ordered by Lance Escobar for Inpatient Admission. Preliminary diagnosis is Urinary tract infection, site not specified - bilateral pyelonephritis. - Bed requested for Telemetry/MedSurg (Inpatient). - Status is Inpatient Admission. 8 - Condition is Stable. - Problem is new. - Symptoms have improved. Signatures: Dispatcher [employer] Damaris Sharif RN RN dw Anderson, Corey, MD MD cha Attema, Lee, PROPERTY CONSULTANT-C PROPERTY CONSULTANT[facility] Shan Smith, BUSINESS SPECIALIST BUSINESS SPECIALIST pm1 Aly Byers RN RN jl7 Shanthi Guerrero RN RN [facility] Bakari Helton RN RN jm8 Corrections: (The following items were deleted from the chart) 07/22 17:20 17:19 Acetaminophen 1000 mg PO once ordered. pm1 pm1 21:23 19:30 Hospitalization Ordered by Lance Escobar DO for Inpatient Admission. Preliminary diagnosis is Urinary tract infection, site not specified - bilateral pyelonephritis. Bed requested for Telemetry/MedSurg (Inpatient). Status is Inpatient Admission. Condition is Stable. Problem is new. Symptoms have improved. pm1 23:12 21:23 07/22/2020 19:30 Hospitalization Ordered by Lance Escobar DO for Inpatient 8 Admission. Preliminary diagnosis is Urinary tract infection, site not specified - bilateral pyelonephritis. Bed requested for Telemetry/MedSurg (Inpatient). Status is Inpatient Admission. Condition is Stable. Problem is new. Symptoms have improved. dw
--- NOTE | 2020-07-22 19:31 | ER ---
Nurse's Notes [facility] Name: Sissy Brown Age: 34 yrs Sex: Female : 1985 Arrival Date: 07/22/2020 Time: 16:59 Bed 20 Private MD: Diagnosis: Urinary tract infection, site not specified-bilateral pyelonephritis Presentation: 07/22 17:03 Chief complaint: Patient states: I think I have UTI since last week, but just tried to ca1 flush it out with drinking a lot of water. Now , been having fever for 2 days, my back is hurting, more on the R side, dizziness. Ibuprofen taken at 1000. Coronavirus screen: Client denies travel out of the [place] in the last 14 days. fever, Client presents with at least one sign or symptom that may indicate coronavirus-19. Standard/surgical mask placed on the client. Provider contacted for isolation considerations. Ebola Screen: Patient negative for fever greater than or equal to 101.5 degrees Fahrenheit, and additional compatible Ebola Virus Disease symptoms Patient denies exposure to infectious person. Patient denies travel to an Ebola-affected area in the 21 days before illness onset. No symptoms or risks identified at this time. Initial Sepsis Screen: Does the patient meet any 2 criteria? Temp <36.0*C (96.8*F)) or > 38.3*C (100.9*F). HR > 90 bpm. Yes Does the patient have a suspected source of infection? Yes: Dysuria/Frequency/Urgency/UTI. Risk Assessment: Do you want to hurt yourself or someone else? Patient reports no desire to harm self or others. Onset of symptoms was July 22, 2020. 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 - Social history:: Smoking status: Patient denies any tobacco usage or history of. Screenin:10 Abuse screen: Denies threats or abuse. Denies injuries from another. Nutritional jl7 screening: No deficits noted. Tuberculosis screening: No symptoms or risk factors identified. Fall Risk IV access (20 points). Total Cr Fall Scale indicates No Risk (0-24 pts). Assessment: 17:30 General: Appears in no apparent distress. uncomfortable, ill, Behavior is calm, jl7 cooperative, appropriate for age. Pain: Complains of pain in right flank Pain currently is 6 out of 10 on a pain scale. Neuro: Level of Consciousness is awake, alert, obeys commands, Oriented to person, place, time, situation. Cardiovascular: Patient's skin is warm and dry. Respiratory: Airway is patent Respiratory effort is even, unlabored, Respiratory pattern is symmetrical, tachypnea. : Reports burning with urination. Derm: Skin is dry, Skin is flushed, Skin temperature is warm. Vital Signs: 17:03 BP 116 / 75; Pulse 108; Resp 20; Temp 102.9(O); Pulse Ox 97% on R/A; Weight 72.57 kg ca1 (R); Height 5 ft. 4 in. (162.56 cm) (R); Pain 6/10; 18:15 BP 114 / 67; Pulse 98; Resp 24 S; Pulse Ox 100% on R/A; jl7 19:01 BP 115 / 75; Pulse 96; Resp 17; Pulse Ox 99% ; jl7 19:03 Temp 100.7; jl7 20:00 BP 114 / 68; Pulse 102; Resp 16; Temp 98.7(O); Pulse Ox 100% on R/A; jm8 22:09 BP 116 / 75; Pulse 112; Resp 16; Pulse Ox 99% on R/A; jm8 17:03 Body Mass Index 27.46 (72.57 kg, 162.56 cm) ca1 ED Course: 16:59 Patient arrived in ED. bp1 17:06 Triage completed. ca1 17:06 Arm band placed on right wrist. ca1 17:13 Shan Smith NP is PHCP. pm1 17:13 Sam Saucedo MD is Attending Physician. pm1 17:17 Aly Byers RN is Primary Nurse. jl7 17:43 Inserted saline lock: 18 gauge in left antecubital area, using aseptic technique. Blood jl7 collected. 17:43 Initial lab(s) drawn, by co, sent to lab. First set of blood cultures drawn by me. jl7 18:08 Second set of blood cultures drawn by co. Inserted saline lock: 22 gauge in right jl7 forearm, using aseptic technique. Blood collected. 18:10 Patient has correct armband on for positive identification. Bed in low position. Call jl light in reach. Side rails up X2. Pulse ox on. NIBP on. 18:35 Radiology exam delayed due to test not completed at this time. ri 18:42 Urine Culture Sent. [facility] 18:42 Urine Microscopic Only Sent. [facility] 18:42 Urine Culture Sent. [facility] 18:51 CT Abd/Pelvis - IV Contrast Only In Process Unspecified. EDMS 19:19 environmental monitoring technician on. Pulse ox on. NIBP on. [facility] 19:29 Lance Escobar DO is Hospitalizing Provider. pm1 19:41 Primary Nurse role handed off by Aly Byers RN 2 23:06 No provider procedures requiring assistance completed. Patient admitted, IV remains in [facility] place. intact, bleeding controlled. Administered Medications: 17:17 Drug: Tylenol 1000 mg Route: PO; ca1 19:00 Follow up: Response: No adverse reaction; Temperature is decreased [facility] 22:11 Follow up: Response: No adverse reaction [facility] 17:20 CANCELLED (Duplicate Order): Acetaminophen 1000 mg PO once pm1 17:43 Drug: NS 0.9% (30 ml/kg) 30 ml/kg Route: IV; Rate: bolus; Site: left antecubital; [facility] 19:15 Follow up: Response: No adverse reaction; IV Status: Completed infusion; IV Intake: [facility] 2177ml 17:43 Drug: Zofran (Ondansetron) 4 mg Route: IVP; Site: left antecubital; [facility] 19:03 Follow up: Response: No adverse reaction [facility] 17:45 Drug: morphine 4 mg Route: IVP; Site: left antecubital; [facility] 18:00 Follow up: Response: No adverse reaction; Pain is decreased [facility] 18:34 Drug: Cefepime 2 grams Route: IVPB; Rate: 200 ml/hr; Infused Over: 30 mins; Site: left jl7 antecubital; 19:04 Follow up: Response: No adverse reaction; IV Status: Completed infusion josue 21:43 Follow up: IV Status: Completed infusion leonardo Intake: 19:15 IV: 2177ml; Total: 2177ml. josue Outcome: 19:30 Decision to Hospitalize by Provider. pm1 23:07 Admitted to Med/surg accompanied by tech, via wheelchair, with chart, Report called to leonardo Alvarez Rn 23:07 Condition: good 23:07 Instructed on the need for admit. 23:12 Patient left the ED. leonardo Signatures: Dispatcher [employer] EDMS Shan Smith, JOCELYN HORTICULTURE PROFESSOR pm1 Marco Antonio Go Maria [facility] Aly Byers RN RN jl7 Grant Calvillo 2 Shanthi Guerrero RN RN ca1 Mary Valentin Joseph RN RN [email or web address] Corrections: (The following items were deleted from the chart) 17:07 17:03 Chief complaint: Patient states: I think I have UTI since last week, but just ca1 tried to flush it out with drinking a lot of water. Now , been having fever for 2 days, my back is hurting, more on the R side, dizziness ca1 23:06 20:00 BP 114 / 68; Pulse 102bpm; Resp 16bpm; Pulse Ox 100% RA; leonardo patterson 07/23 09:37 05 21:43 IV Status: Completed infusion leonardo salas
--- NOTE | 2020-07-22 20:16 | P.HP ---
Certification for Inpatient Patient admitted to: Inpatient With expected LOS: >2 Midnights Patient will require the following post-hospital care: None Practitioner: I am a practitioner with admitting privileges, knowledge of patient current condition, hospital course, and medical plan of care. Services: Services provided to patient in accordance with Admission requirements found in Title 42 Section 412.3 of the Code of Federal Regulations Patient History Date of Service: 07/22/20 Primary Care Provider: none Reason for admission: Bilateral pyelonephritis History of Present Illness: 34-year-old female with history of anxiety/depression presents emergency department for urinary symptoms and back pain. Patient reports her symptoms started last week, started with fever and back pain 2 days prior to arrival. Evaluation in the emergency department, white blood cell count 26.6 GFR 54 glucose 121 lactic acid initially 3.7 urine significant for nitrite positive, leukocyte 3+ on the dip greater than [address] bacteria on microscopic analysis CT demonstrates edematous appearance of both kidneys suspicious for bilateral pyelonephritis without abscess. Patient remained normotensive throughout the ED stay, was mildly tachycardic. ED provider wishes to admit for further evaluation and management. - Past Medical/Surgical History -: Anxiety/depression -: Cholecystectomy -: Gastric bypass Psychosocial/ Personal History: Patient is unemployed and lives at home with her 3 children - Family History Family History: Reviewed- Non-Contributory - Social History Smoking Status: Never smoker Alcohol use: No CD- Drugs: No Caffeine use: Yes Place of Residence: Home Review of Systems 10-point ROS is otherwise unremarkable Gastrointestinal: Nausea, Vomiting, Abdominal Pain Genitourinary: Dysuria, Frequency, Urgency, As per HPI Musculoskeletal: Back Pain Physical Examination - Physical Exam General: Alert, In no apparent distress, Oriented x3 HEENT: Atraumatic, PERRLA, Mucous membr. moist/pink, EOMI, Sclerae nonicteric Neck: Supple, 2+ carotid pulse no bruit, No LAD, Without JVD or thyroid abnormality Respiratory: Clear to auscultation bilaterally, Normal air movement Cardiovascular: Regular rate/rhythm, Normal S1 S2 Gastrointestinal: Normal bowel sounds, Tenderness (Mild abdominal tenderness epigastric, left lower quadrant. Mild CVA tenderness bilateral) Musculoskeletal: No tenderness Integumentary: No rashes Neurological: Normal speech, Normal strength at 5/5 x4 extr, Normal tone, Normal affect - Studies Laboratory Data (last 24 hrs) 07/22/20 17:43: PT 14.8 H, INR 1.28, APTT 25.8 07/22/20 17:43: WBC 26.60 H*, Hgb 11.3 L, Hct 34.4 L, Plt Count 445 H 07/22/20 17:43: Sodium 134 L, Potassium 3.6, BUN 10, Creatinine 1.17, Glucose 121 H, Total Bilirubin 0.7, AST 9 L, ALT 19, Alkaline Phosphatase 113, Amylase 29, Lipase 61 L Assessment and Plan - Plan Assessment Sepsis without severe sepsis or septic shock secondary to bilateral pyelonephritis Anxiety/depression Plan Sepsis without severe sepsis or septic shock secondary to bilateral pyelonephritis: Patient received 30 cc/kg bolus in the emergency department, remains normotensive only mildly tachycardic with heart rate around 105. Will continue with cefepime, urine and blood cultures pending. NPO as patient is still having vomiting at this time, will advance tolerated. Continue with IV fluids, DVT prophylaxis Lovenox 40 mg subcutaneous once daily. Anxiety/depression: Will continue home medications as appropriate. Discharge Plan: Home Plan to discharge in: Greater than 2 days - Advance Directives Does patient have a Living Will: No Does patient have a Durable POA for Healthcare: No - Code Status/Comfort Care Code Status Assessed: Yes (Full code) Critical Care: No Time Spent Managing Pts Care (In Minutes): 55
--- NOTE | 2020-07-22 22:32 | P.INFCA ---
Sepsis Focused Assessment - Sepsis Screen Result Severe Sepsis: Negative Septic Shock: Negative - Evaluation Current stage of sepsis: Ruled out Reason for ruling out sepsis: VSS stable, lactate decreasing - Vital Signs Reviewed: Yes - Examination Date exam was performed: 07/22/20 Time exam was performed: 22:32 Heart: Regular rate/rhythm Lungs: Clear bilaterally Peripheral pulses: 3+ Normal Peripheral pulse location: Radial Capillary refill: <2 Seconds Skin examination: Normal turgor
[2020-07-22] MEDS ORDERED: CEFEPIME 1 GM/VIAL IV SCH (23:45)
[2020-07-22] MEDS ORDERED: ONDANSETRON 4 MG/2 ML VIAL IV PRN (23:45)
[2020-07-23] MEDS: NA CHLORIDE 0.9% 1,000 ML IV SCH ×4 (00:05→16:41)
[2020-07-23] MEDS: MORPHINE 2 MG/ML SYR IV PRN (00:21)
[2020-07-23 00:34] VITALS: BMI 28.5
[2020-07-23] MEDS: ACETAMINOPHEN 500 MG TAB PO PRN ×2 (03:46→16:41)
[2020-07-23 04:01] LABS: Absolute Lymphocytes (CBC) 0.6 K/uL (0.7-4.9); Basophils % 0.2 % (0-1.3); Lymphocytes % 3.1 % (15.3-44.8); MPV 8.1 fL (7.6-11.3); RBC Red Blood Cell Count 3.37 M/uL (3.86-4.86)
[2020-07-23] MEDS: HYDROCODONE/APAP 5/325 MG TAB PO PRN ×3 (05:08→20:04)
[2020-07-23 05:10] LABS: Albumin 2.8 g/dL (3.4-5.0); Bilirubin Total 0.4 mg/dL (0.2-1.0); Magnesium 1.7 mg/dL (1.8-2.4); Protein, Total 6.7 g/dL (6.4-8.2); Thyroid Stimulating Hormone 0.686 uIU/mL (0.360-3.740)
[2020-07-23] MEDS ORDERED: MAGNESIUM SULFATE 1 gm IVPB 1 GM/100 ML BAG IV ONE (05:12)
[2020-07-23] MEDS: ENOXAPARIN 40 MG/0.4 ML SQ SCH (08:51)
[2020-07-23] MEDS: CEFEPIME/SWI 1gm 10 ML IV SCH ×2 (08:52→20:04)
[2020-07-23] MEDS ORDERED: DOCUSATE NA 100 MG CAP PO PRN (09:58)
--- NOTE | 2020-07-23 09:58 | P.PN ---
Subjective Date of Service: 07/23/20 Primary Care Provider: none Chief Complaint: Bilateral pyelonephritis Subjective: Other (Patient reports mild improvement. Still with fever and chills. T-max 103.4.) Physical Examination - Vital Signs Temperature: 99.3 F Blood Pressure: 111/60 Pulse: 102 Respirations: 17 Pulse Ox (%): 98 - Studies Laboratory Data (last 24 hrs) 07/22/20 17:43: PT 14.8 H, INR 1.28, APTT 25.8 07/22/20 17:43: WBC 26.60 H*, Hgb 11.3 L, Hct 34.4 L, Plt Count 445 H 07/22/20 17:43: Sodium 134 L, Potassium 3.6, BUN 10, Creatinine 1.17, Glucose 121 H, Total Bilirubin 0.7, AST 9 L, ALT 19, Alkaline Phosphatase 113, Amylase 29, Lipase 61 L Assessment & Plan Discharge Plan: Home Plan to discharge in: 72 Hours Physician Review Additional Text: Physical Exam: GENERAL: Patient alert, cooperative. Some chills noted. VITAL SIGNS: Reviewed HEENT: Dry mucous membranes noted NECK: Supple. No carotid bruits. No lymphadenopathy or thyromegaly. LUNGS: Clear to auscultation. No crackles or wheezes are heard. HEART: Regular rate and rythem, no appreciable gallops, rubs, murmurs or extra heart sounds ABDOMEN: Soft, nontender, and nondistended. Positive bowel sounds. No hepatosplenomegaly was noted. EXTREMITIES: Without any cyanosis, clubbing, rash, lesions or peripheral edema. NEUROLOGIC: The patient is oriented to person, place and time. Strength and sensation are grossly intact. Face is symmetric. SKIN: Normal color, turgor and temperature. No ulcerations or rashes noted. Impression: Sepsis without severe sepsis or septic shock secondary to bilateral pyelonephritis and bacteremia, blood/urine culture positive for gram-negative rods Anxiety/depression Anemia likely delusional with possible iron deficiency Mild renal insufficiency with dehydration secondary to above Plan Sepsis without severe sepsis or septic shock secondary to bilateral pyelonephritis and bacteremia, blood/urine culture positive for gram-negative rods: Patient given fluid bolus in the emergency room. Blood pressure now stable. No evidence of severe sepsis or septic shock at this time. Continue to monitor vitals closely. Continue aggressive IV fluids. DVT prophylaxis in place. Advance diet. Continue IV antibiotic therapycefepime. Await blood and urine culture results. Will obtain echocardiogram. Will provide medication for pain and fever. Anticipate improvement over the next 48 to 72 hours. Anxiety/depression: Continue with home medicationZoloft. Anemia likely delusional with possible iron deficiency: Patient previously on iron. Restart medication. We will monitor closely. Will check iron and B12 studies. Mild renal insufficiency with dehydration secondary to above: Continue aggressive IV fluids. Will monitor closely. Electrolyte protocol in place. Code Status: Full Code DVT prophylaxis: Lovenox Advanced Care Planning-30 minutes: Plan of care for the patient's discharge was discussed in detail with the patient. Patient desires to go home at discharge. Time Spent Managing Pts Care (In Minutes): 55
[2020-07-23 11:16] LABS: Ferritin 90.8 ng/mL (8-388)
--- NOTE | 2020-07-23 11:33 | EKG ---
Test Date: 2020-07-22 Test Time: 19:11:32 Tile Applicator: NÉSTOR MEASUREMENT RESULTS: Intervals: Rate: 94 [place]: 132 QRSD: 90 QT: 382 QTc: 477 [place]: P: 75 [place]: 132 QRS: 59 T: 66 INTERPRETIVE STATEMENTS: Normal sinus rhythm Nonspecific ST abnormality Abnormal ECG No previous ECG available for comparison Electronically Signed On 07-23-20 11:31:06 CDT by Ulices Ramírez
[2020-07-23] MEDS: LACTOBACILLUS/ACIDOPHILUS TAB PO SCH (20:03)
[2020-07-23] MEDS: SERTRALINE HCL 50 MG TAB PO SCH (21:58)
[2020-07-24] MEDS: HYDROCODONE/APAP 5/325 MG TAB PO PRN ×2 (01:55→08:56)
[2020-07-24] MEDS: ACETAMINOPHEN 500 MG TAB PO PRN ×4 (04:40→22:07)
[2020-07-24 05:32] LABS: Absolute Lymphocytes (CBC) 0.5 K/uL (0.7-4.9); Basophils % 0.2 % (0-1.3); Hematocrit 26.7 % (36.0-45.0); Lymphocytes % 6.6 % (15.3-44.8); MPV 8.1 fL (7.6-11.3); RBC Red Blood Cell Count 3.13 M/uL (3.86-4.86)
[2020-07-24 05:58] LABS: Albumin 2.4 g/dL (3.4-5.0); Bilirubin Total 0.2 mg/dL (0.2-1.0); Magnesium 1.8 mg/dL (1.8-2.4); Potassium 3.5 mmol/L (3.5-5.1); Protein, Total 6.2 g/dL (6.4-8.2)
[2020-07-24] MEDS ORDERED: MAGNESIUM SULFATE 1 gm IVPB 1 GM/100 ML BAG IV ONE (05:59)
[2020-07-24] MEDS ORDERED: POTASSIUM CL SA 10 MEQ TAB PO ONE ×2 (06:00→10:00)
[2020-07-24] MEDS: NA CHLORIDE 0.9% 1,000 ML IV SCH ×3 (06:40→18:04)
--- NOTE | 2020-07-24 08:36 | P.PN ---
Subjective Date of Service: 07/24/20 Primary Care Provider: none Chief Complaint: Bilateral pyelonephritis Subjective: Improving, Doing well Physical Examination - Vital Signs Temperature: 97.1 F Blood Pressure: 128/72 Pulse: 101 Respirations: 16 Pulse Ox (%): 92 - Studies Microbiology Data (last 24 hrs): 07/22/20 18:35 Clean Catch Urine [place] Count - Final >100,000 CFU/ML. 07/22/20 18:35 Clean Catch Urine - Final Escherichia Coli 07/22/20 18:06 Blood - Blood Blood Culture Gram Stain - Final 07/22/20 17:43 Blood - Blood Blood Culture Gram Stain - Final Assessment & Plan Discharge Plan: Home Plan to discharge in: 48 Hours Physician Review Additional Text: Physical Exam: Patient reports improvement. Patient ambulating. T-max 102.5. Nurses report oxygen saturations around 88% this morning. Patient on room air. GENERAL: Patient alert, cooperative. Some chills noted. VITAL SIGNS: Reviewed HEENT: Dry mucous membranes noted NECK: Supple. No carotid bruits. No lymphadenopathy or thyromegaly. LUNGS: Clear to auscultation. No crackles or wheezes are heard. HEART: Regular rate and rythem, no appreciable gallops, rubs, murmurs or extra heart sounds ABDOMEN: Soft, nontender, and nondistended. Positive bowel sounds. No hepatosplenomegaly was noted. EXTREMITIES: Without any cyanosis, clubbing, rash, lesions or peripheral edema. NEUROLOGIC: The patient is oriented to person, place and time. Strength and sensation are grossly intact. Face is symmetric. SKIN: Normal color, turgor and temperature. No ulcerations or rashes noted. Impression: Sepsis without severe sepsis or septic shock secondary to bilateral pyelonephritis and bacteremia, urine culture positive for E. coli, blood culture showing gram-negative rods Anxiety/depression Anemia likely delusional with possible iron deficiency Mild renal insufficiency with dehydration secondary to above Plan Sepsis without severe sepsis or septic shock secondary to bilateral pyelonephritis and bacteremia, urine culture positive for E. coli, blood culture showing gram-negative rods: Patient improving. Will obtain chest x-ray due to mild hypoxia. Encourage incentive spirometer. Patient appears clinically stable and overall improving. Still with T-max 102.5. Will obtain echocardiogram due to her bacteremia. Continue IV antibiotic therapy. Urine culture positive for E. coli. Still waiting on blood culture but suspect this will be E. coli as well. Will consider transitioning to oral medication tomorrow. Continue ambulation. DVT prophylaxis in place. Anticipate continued improvement likely home in the next 48 hours. Would like to see her without fever for at least 24 hours. Anxiety/depression: Continue with home medicationZoloft. Anemia likely delusional with iron and B12 deficiency: Will increase iron to twice daily. B12 supplementation added. Mild renal insufficiency with dehydration secondary to above: We will decrease IV fluids. If taking good oral intake then will Hep-Lock IV. Code Status: Full Code DVT prophylaxis: Lovenox Advanced Care Planning-30 minutes: Plan of care for the patient's discharge was discussed in detail with the patient. Patient desires to go home at discharge. Time Spent Managing Pts Care (In Minutes): 55
[2020-07-24] MEDS: SERTRALINE HCL 50 MG TAB PO SCH (08:56)
[2020-07-24] MEDS: CYANOCOBALAMIN 1,000 MCG TAB PO SCH (08:56)
[2020-07-24] MEDS: LACTOBACILLUS/ACIDOPHILUS TAB PO SCH ×2 (08:56→20:20)
[2020-07-24] MEDS: FERROUS SULFATE 325 MG TAB PO SCH ×2 (08:57→20:20)
[2020-07-24] MEDS: CEFEPIME/SWI 1gm 10 ML IV SCH ×2 (08:58→20:19)
[2020-07-24] MEDS: ENOXAPARIN 40 MG/0.4 ML SQ SCH (09:00)
[2020-07-24] MEDS ORDERED: FERROUS SULFATE 325 MG TAB PO SCH (09:00)
--- NOTE | 2020-07-24 10:46 | RAD REPORT ---
EXAM DESCRIPTION: RAD - Chest Single View - 07/24/2020 9:04 am CLINICAL HISTORY: follow up Pyelonephritis, hypoxia Chest pain. COMPARISON: No comparisons FINDINGS: Portable technique limits examination quality. Mildly prominent interstitial lung markings seen which may indicate a mild pneumonitis/ infection. As thma/bronchitis is another possibility. The heart is normal in size. No displaced fractures.
--- NOTE | 2020-07-24 12:42 | ECHO ---
HEIGHT: 5 ft 4 in WEIGHT: 166 lb 3.2 oz DATE OF STUDY: 07/24/[address]: Lance Escobar DO 2-DIMENSIONAL: YES M.MODE: YES DOPPLER: YES COLOR FLOW: YES TDS: PORTABLE: DEFINITY: BUBBLE STUDY: DIAGNOSIS: SEPSOS CARDIAC HISTORY: CATHERIZATION: SURGERY: PROSTHETIC VALVE: PACEMAKER: MEASUREMENTS (cm) DIASTOLIC (NORMALS) SYSTOLIC (NORMALS) IVSd 0.9 (0.6-1.2) LA Diam 3.0 (1.9-4.0) LVEF 52% LVIDd 4.3 (3.5-5.7) LVIDs 3.1 (2.0-3.5) %FS 27% LVPWd 0.8 (0.6-1.2) Ao Diam 2.8 (2.0-3.7) 2 DIMENSIONAL ASSESSMENT: RIGHT ATRIUM: NORMAL LEFT ATRIUM: NORMAL RIGHT VENTRICLE: NORMAL LEFT VENTRICLE: NORMAL TRICUSPID VALVE: NORMAL MITRAL VALVE: NORMAL PULMONIC VALVE: NORMAL AORTIC VALVE: NORMAL PERICARDIAL EFFUSION: NONE AORTIC ROOT: NORAML LEFT VENTRICULAR WALL MOTION: NORMAL DOPPLER/COLOR FLOW: MILD TRICUSPID REGURGITATION COMMENTS: MILD TRICUSPID REGURGITATION. NORMAL LEFT VENTRICULAR SYSTOLIC FUNCTION. NO VEGETATION. TECHNOLOGIST: FREDIS BIRMINGHAM
[2020-07-24] MEDS: MORPHINE 2 MG/ML SYR IV PRN ×2 (17:02→22:51)
[2020-07-25] MEDS: NA CHLORIDE 0.9% 1,000 ML IV SCH (04:04)
[2020-07-25] MEDS: ACETAMINOPHEN 500 MG TAB PO PRN ×2 (04:20→08:24)
[2020-07-25 05:48] LABS: Absolute Lymphocytes (CBC) 0.6 K/uL (0.7-4.9); Basophils % 0.2 % (0-1.3); Hematocrit 26.1 % (36.0-45.0); Lymphocytes % 7.9 % (15.3-44.8); MPV 8.4 fL (7.6-11.3); RBC Red Blood Cell Count 3.09 M/uL (3.86-4.86)
[2020-07-25 05:51] LABS: ALT/SGPT 18 U/L (12-78); AST/SGOT 13 U/L (15-37); Alkaline Phosphatase 77 U/L (45-117); BUN Blood Urea Nitrogen 6 mg/dL (7-18); Bicarbonate 23 mmol/L (21-32); Bilirubin Total 0.2 mg/dL (0.2-1.0); Glucose Level 100 mg/dL (74-106); Potassium 3.8 mmol/L (3.5-5.1); Sodium Level 139 mmol/L (136-145)
[2020-07-25 05:52] LABS: Albumin 2.2 g/dL (3.4-5.0); Magnesium 1.7 mg/dL (1.8-2.4); Protein, Total 6.3 g/dL (6.4-8.2)
[2020-07-25] MEDS ORDERED: TRAMADOL HCL 50 MG TAB PO PRN (07:47)
[2020-07-25] MEDS: FERROUS SULFATE 325 MG TAB PO SCH ×2 (08:23→20:38)
[2020-07-25] MEDS: CEFEPIME/SWI 1gm 10 ML IV SCH (08:23)
[2020-07-25] MEDS: SERTRALINE HCL 50 MG TAB PO SCH (08:24)
[2020-07-25] MEDS: LACTOBACILLUS/ACIDOPHILUS TAB PO SCH ×2 (08:24→20:37)
[2020-07-25] MEDS: CYANOCOBALAMIN 1,000 MCG TAB PO SCH (08:24)
[2020-07-25] MEDS: DOCUSATE NA 100 MG CAP PO SCH (08:25)
[2020-07-25] MEDS: ENOXAPARIN 40 MG/0.4 ML SQ SCH (08:26)
[2020-07-25] MEDS ORDERED: NA CHLORIDE 0.9% 1,000 ML IV SCH (11:28)
[2020-07-25] MEDS ORDERED: Levofloxacin500mg IV 500 MG/100 ML BAG IV SCH (12:00)
--- NOTE | 2020-07-25 12:45 | RAD REPORT ---
EXAM DESCRIPTION: RAD - Chest Pa And Lat (2 Views) - 07/25/2020 12:34 pm CLINICAL HISTORY: hypoxia COMPARISON: Single-view chest July 24 TECHNIQUE: Frontal and lateral views of the chest were obtained. FINDINGS: The lungs are underinflated. There is a dense area of consolidated parenchyma in the poste romedial left base with additional alveolar opacities scattered throughout the mid and lower lung fie lds. There is relative sparing of each apex. Trachea remains in the midline. Heart size is normal a nd central vasculature is within normal limits. Small pleural effusions are suspected. There is no p neumothorax. No acute bony finding noted. No aortic abnormality. IMPRESSION: Dense consolidated pneumonia has developed in the posteromedial left lung base. There is additional bilateral airspace opacification that is probably pneumonia as well. Overall pat tern is more favorable for a bacterial pneumonia. Viral pneumonia including COVID-19 pneumonia not ex cluded.
--- NOTE | 2020-07-25 12:58 | RAD REPORT ---
EXAM DESCRIPTION: US - Renal Ultrasound-Complete - 07/25/2020 12:45 pm CLINICAL HISTORY: Pyelonephritis, fever COMPARISON: Abdomen Pelvis W Contrast dated 07/22/2020 FINDINGS: The right kidney measures approximately 12 x 5 centimeter. The left kidney measures appro ximately 12 x 6 centimeter. Renal cortical thickness and echogenicity are normal. The renal parenchym al edema or pyelonephritis changes suspected on the July 22 CT study do not have a sonographic correla te. No abscess or other focal finding has developed within the renal parenchyma. No hydronephrosis or suspicious renal mass. Bladder is too contracted to allow assessment. IMPRESSION: No hydronephrosis of either kidney. No renal parenchymal abscess, mass or suspicious sherlyn al parenchymal finding. The edema or pyelonephritis findings on the July 22 CT study do not have a sonogram correlate. This ma y be due to being sonographically occult or sufficiently resolved.
[2020-07-25] MEDS ORDERED: POTASSIUM CL SA 10 MEQ TAB PO ONE (17:00)
--- NOTE | 2020-07-25 17:09 | P.PN ---
Subjective Date of Service: 07/25/20 Primary Care Provider: none Chief Complaint: Bilateral pyelonephritis Subjective: Improving, Doing well, Other (Had some hypoxia today.) Physical Examination - Vital Signs Temperature: 100.4 F Blood Pressure: 145/79 Pulse: 79 Respirations: 22 Pulse Ox (%): 95 - Studies Microbiology Data (last 24 hrs): 07/22/20 18:06 Blood - Blood Blood Culture Gram Stain - Final 07/22/20 17:43 Blood - Blood Aerobic Blood Culture - Final Escherichia Coli 07/22/20 17:43 Blood - Blood Blood Culture Gram Stain - Final 07/22/20 17:43 Blood - Blood Anaerobic Blood Culture - Final Escherichia Coli 07/22/20 17:43 Blood - Blood Gram Stain - Final Assessment & Plan Discharge Plan: Home Plan to discharge in: 48 Hours Physician Review Additional Text: Physical Exam: Patient reports improvement. Patient ambulating. T-max 102.5. Does report so me hypoxia today. GENERAL: Patient alert, cooperative. Some chills noted. VITAL SIGNS: Reviewed HEENT: Dry mucous membranes noted NECK: Supple. No carotid bruits. No lymphadenopathy or thyromegaly. LUNGS: Slight crackles to the left base. HEART: Regular rate and rhythm, no appreciable gallops, rubs, murmurs or extra heart sounds ABDOMEN: Soft, nontender, and nondistended. Positive bowel sounds. No hepatosplenomegaly was noted. EXTREMITIES: Without any cyanosis, clubbing, rash, lesions or peripheral edema. NEUROLOGIC: The patient is oriented to person, place and time. Strength and sensation are grossly intact. Face is symmetric. SKIN: Normal color, turgor and temperature. No ulcerations or rashes noted. Impression: Sepsis without severe sepsis or septic shock secondary to bilateral pyelonephritis and bacteremia, urine and blood cultures positive for E. coli complicated with left-sided pneumonia Anxiety/depression Anemia likely delusional with possible iron deficiency Mild renal insufficiency with dehydration secondary to above Plan Sepsis without severe sepsis or septic shock secondary to bilateral pyelonephritis and bacteremia, urine and blood cultures positive for E. coli complicated with left-sided pneumonia: Patient had some hypoxia today. Continue oxygen. Encourage incentive spirometer. Patient found to have left-sided pneumonia. Will change IV antibiotic therapy to IV Levaquin. Monitor white count. Monitor fever. Consider possible discharge in the next 48 hours if without fever for at least 24 hours. Anxiety/depression: Continue with home medicationZoloft. Anemia likely delusional with iron and B12 deficiency: Continue with iron and B12 supplementation. Mild renal insufficiency with dehydration secondary to above: We will decrease IV fluids. If taking good oral intake then will Hep-Lock IV. Code Status: Full Code DVT prophylaxis: Lovenox Advanced Care Planning-30 minutes: Plan of care for the patient's discharge was discussed in detail with the patient. Patient desires to go home at discharge. Time Spent Managing Pts Care (In Minutes): 55
[2020-07-25] MEDS: HYDROCODONE/APAP 5/325 MG TAB PO PRN (17:23)
[2020-07-26 04:53] LABS: Absolute Lymphocytes (CBC) 1.3 K/uL (0.7-4.9); Basophils % 0.4 % (0-1.3); Hematocrit 25.6 % (36.0-45.0); Lymphocytes % 20.5 % (15.3-44.8); MPV 8.2 fL (7.6-11.3); RBC Red Blood Cell Count 3.02 M/uL (3.86-4.86)
[2020-07-26 05:21] LABS: BUN Blood Urea Nitrogen 5 mg/dL (7-18); Bicarbonate 28 mmol/L (21-32); Glucose Level 94 mg/dL (74-106); Potassium 3.6 mmol/L (3.5-5.1); Sodium Level 143 mmol/L (136-145)
[2020-07-26 08:11] VITALS: BP 123/78; TEMP 97.6
[2020-07-26 08:56] VITALS: O2SAT 97
[2020-07-26] MEDS: CYANOCOBALAMIN 1,000 MCG TAB PO SCH (08:58)
[2020-07-26] MEDS: LACTOBACILLUS/ACIDOPHILUS TAB PO SCH (08:58)
[2020-07-26] MEDS: DOCUSATE NA 100 MG CAP PO SCH (08:58)
[2020-07-26] MEDS: ENOXAPARIN 40 MG/0.4 ML SQ SCH (08:58)
[2020-07-26] MEDS: FERROUS SULFATE 325 MG TAB PO SCH (08:58)
[2020-07-26] MEDS: SERTRALINE HCL 50 MG TAB PO SCH (08:58)
[2020-07-26] MEDS ORDERED: POTASSIUM CL SA 10 MEQ TAB PO ONE (09:00)
--- NOTE | 2020-07-26 09:01 | P.DS ---
Admission Date: 07/22/20 Discharge Date: 07/26/20 Primary Care Provider: none Disposition: ROUTINE DISCHARGE Discharge Condition: GOOD Reason for Admission: Bilateral pyelonephritis Consultations: none Procedures: COVID: [Negative] CT Scan: COMPARISON: Abdomen Pelvis W Contrast dated 03/16/2020 TECHNIQUE: Biphasic CT imaging of the abdomen and pelvis was performed with 100 ml non-ionic IV contrast. All CT scans are performed using dose optimization technique as appropriate and may include automated exposure control or mA/KV adjustment according to patient size. FINDINGS: The lung bases are clear.Cholecystectomy clips. Postsurgical changes about the stomach is seen. The liver, spleen, pancreas, adrenal glands are within normal limits. Edematous appearance to both kidneys present. No bowel obstruction, free air, free fluid or abscess. The appendix is normal. No evidence of significant lymphadenopathy. No suspicious bony findings. IUD is present in the uterus. IMPRESSION: Edematous appearance to both kidneys is noted suspicious for bilateral pyelonephritis. No perinephric abscess. ECHO: MEASUREMENTS (cm) DIASTOLIC (NORMALS) SYSTOLIC (NORMALS) IVSd 0.9 (0.6-1.2) LA Diam 3.0 (1.9-4.0) LVEF 52% LVIDd 4.3 (3.5-5.7) LVIDs 3.1 (2.0-3.5) %FS 27% LVPWd 0.8 (0.6-1.2) Ao Diam 2.8 (2.0-3.7) 2 DIMENSIONAL ASSESSMENT: RIGHT ATRIUM: NORMAL LEFT ATRIUM: NORMAL RIGHT VENTRICLE: NORMAL LEFT VENTRICLE: NORMAL TRICUSPID VALVE: NORMAL MITRAL VALVE: NORMAL PULMONIC VALVE: NORMAL AORTIC VALVE: NORMAL PERICARDIAL EFFUSION: NONE AORTIC ROOT: NORAML LEFT VENTRICULAR WALL MOTION: NORMAL DOPPLER/COLOR FLOW: MILD TRICUSPID REGURGITATION COMMENTS: MILD TRICUSPID REGURGITATION. NORMAL LEFT VENTRICULAR SYSTOLIC FUNCTION. NO VEGETATION. Follow-up chest x-ray: COMPARISON: Single-view chest July 24 TECHNIQUE: Frontal and lateral views of the chest were obtained. FINDINGS: The lungs are underinflated. There is a dense area of consolidated pa renchyma in the posteromedial left base with additional alveolar opacities scattered throughout the mid and lower lung hein. There is relative sparing of each apex. Trachea remains in the midline. Heart size is normal and central vasculature is within normal limits. Small pleural effusions are suspected. There is no pneumothorax. No acute bony finding noted. No aortic abnormality. IMPRESSION: Dense consolidated pneumonia has developed in the posteromedial left lung base. There is additional bilateral airspace opacification that is probably pneumonia as well. Overall pattern is more favorable for a bacterial pneumonia. Viral pneumonia including COVID-19 pneumonia not excluded Renal US: COMPARISON: Abdomen Pelvis W Contrast dated 07/22/2020 FINDINGS: The right kidney measures approximately 12 x 5 centimeter. The left kidney measures approximately 12 x 6 centimeter. Renal cortical thickness and echogenicity are normal. The renal parenchymal edema or pyelonephritis changes suspected on the July 22 CT study do not have a sonographic correlate. No abscess or other focal finding has developed within the renal parenchyma. No hydronephrosis or suspicious renal mass. Bladder is too contracted to allow assessment. IMPRESSION: No hydronephrosis of either kidney. No renal parenchymal abscess, mass or suspicious renal parenchymal finding. The edema or pyelonephritis findings on the July 22 CT study do not have a sonogram correlate. This may be due to being sonographically occult or sufficiently resolved. Medical Problem List: Sepsis without severe sepsis or septic shock secondary to bilateral pyelonephritis and bacteremia, urine and blood cultures positive for E. coli complicated with left-sided pneumonia Anxiety/depression Acute on chronic anemia with iron and B12 deficiency Mild renal insufficiency with dehydration secondary to above Brief History of Present Illness: 34-year-old female with history of anxiety/depression presents emergency department for urinary symptoms and back pain. Patient reports her symptoms started last week, started with fever and back pain 2 days prior to arrival. Patient evaluated in the emergency room. White count elevated. Patient was found to have sepsis without severe sepsis or septic shock. CT scan revealed bilateral pyelonephritis without abscess. Patient was admitted for further treatment. Hospital Course: Patient presented with fever, dysuria and flank pain. Patient found to have bilateral pyelonephritis. Patient was initially evaluated for sepsis. No severe sepsis or septic shock was identified. Patient was admitted for treatment. During the course of her stay patient was found to be bacteremic. Urine and blood cultures were positive for E. coli. Steele sensitivity noted. Patient also developed left-sided pneumonia. During the course of her stay her IV antibiotic therapies were adjusted. Patient has significantly improved. Patient back to baseline. Echocardiogram unremarkable. Renal ultrasound shows no evidence of abscess. White count within normal range. Patient without significant shortness of breath. Fever has resolved. Repeat cultures so far negative. At discharge the patient will continue with Levaquin 500 mg once daily for 14 days. Patient will also continue with lactobacillus 3 times a day. Education on pyelonephritis provided. UTI prevention provided. At discharge recommend to follow-up to establish care with a local PCP. Patient plans to establish care with Dr. Magallanes. Recommend to recheck labBMP in 1 to 2 weeks to follow-up hospitalization. PCP will follow up on repeat cultures. Patient will continue with incentive spirometer at home. Patient with depression anxiety. At discharge patient will continue with her current medication of Zoloft 50 mg daily. Patient with acute on chronic anemia. Patient with history of iron deficiency anemia. Patient found to have B12 deficiency as well. Medications were adjusted during the course of her stay. At discharge she will continue with iron 325 mg 1 pill twice daily and vitamin B12 1000 mg daily. Recommend to recheck labCBC, iron and B12 lab in 4 to 6 weeks to monitor her progress. Vital Signs/Physical Exam: Temp Pulse Resp BP Pulse Ox 97.6 F 75 16 123/78 97 07/26/20 08:00 07/26/20 08:00 07/26/20 08:00 07/26/20 08:00 07/26/20 08:00 General: Alert, In no apparent distress, Oriented x3, Cooperative HEENT: Atraumatic Neck: Supple Respiratory: Clear to auscultation bilaterally, Normal air movement Cardiovascular: Normal pulses, Regular rate/rhythm Gastrointestinal: Normal bowel sounds, Soft and benign, Non-distended, No tend erness, No masses, No rebound, No guarding Musculoskeletal: No erythema, No tenderness, No warmth Integumentary: No tenderness/swelling Neurological: Normal speech, Normal strength at 5/5 x4 extr, Normal tone, Normal affect Laboratory Data at Discharge: WBC 6.10 K/uL (4.3-10.9) D 07/26/20 04:17 Hgb 8.4 g/dL (12.0-15.0) L 07/26/20 04:17 Hct 25.6 % (36.0-45.0) L 07/26/20 04:17 Plt Count 354 K/uL (152-406) 07/26/20 04:17 PT 14.8 SECONDS (9.5-12.5) H 07/22/20 17:43 INR 1.28 07/22/20 17:43 APTT 25.8 SECONDS (24.3-36.9) 07/22/20 17:43 Sodium 143 mmol/L (136-145) 07/26/20 04:17 Potassium 3.6 mmol/L (3.5-5.1) 07/26/20 04:17 BUN 5 mg/dL (7-18) L 07/26/20 04:17 Creatinine 0.49 mg/dL (0.55-1.3) L 07/26/20 04:17 Glucose 94 mg/dL (74-106) 07/26/20 04:17 Magnesium 1.7 mg/dL (1.8-2.4) L 07/25/20 05:13 Total Bilirubin 0.2 mg/dL (0.2-1.0) 07/25/20 05:13 AST 13 U/L (15-37) L 07/25/20 05:13 ALT 18 U/L (12-78) 07/25/20 05:13 Alkaline Phosphatase 77 U/L (45-117) 07/25/20 05:13 Amylase 29 U/L (25-115) 07/22/20 17:43 Lipase 61 U/L (73-393) L 07/22/20 17:43 Home Medications: Sertraline [Zoloft*] 50 mg PO DAILY 07/23/20 Cyanocobalamin [Vitamin B-12*] 1,000 mcg PO DAILY #90 tab 07/26/20 Docusate [Colace Cap*] 100 mg PO DAILY PRN #30 cap 07/26/20 Ferrous Sulfate [Ferrous Sulfate*] 325 mg PO BID #60 tab 07/26/20 Lactobacillus Acidophilus [Acidophilus Lactobacilli] 1 each PO TID #90 capsule 07/26/20 levoFLOXacin [Levaquin] 500 mg PO DAILY #14 tab 07/26/20 New Medications: Lactobacillus Acidophilus [Acidophilus Lactobacilli] 1 each PO TID #90 capsule Docusate [Colace Cap*] 100 mg PO DAILY PRN #30 cap PRN Reason: Constipation Ferrous Sulfate [Ferrous Sulfate*] 325 mg PO BID #60 tab levoFLOXacin [Levaquin] 500 mg PO DAILY #14 tab Cyanocobalamin [Vitamin B-12*] 1,000 mcg PO DAILY #90 tab Physician Discharge Instructions: Patient presented with fever, dysuria and flank pain. Patient found to have bilateral pyelonephritis. Patient was initially evaluated for sepsis. No severe sepsis or septic shock was identified. Patient was admitted for treatment. During the course of her stay patient was found to be bacteremic. Urine and blood cultures were positive for E. coli. Steele sensitivity noted. Patient also developed left-sided pneumonia. During the course of her stay her IV antibiotic therapies were adjusted. Patient has significantly improved. Patient back to baseline. Echocardiogram unremarkable. Renal ultrasound shows no evidence of abscess. White count within normal range. Patient without significant shortness of breath. Fever has resolved. Repeat cultures so far negative. At discharge the patient will continue with Levaquin 500 mg once daily for 14 days. Patient will also continue with lactobacillus 3 times a day. Education on pyelonephritis provided. UTI prevention provided. At discharge recommend to follow-up to establish care with a local PCP. Patient plans to establish care with Dr. Magallanes. Recommend to recheck labBMP in 1 to 2 weeks to follow-up hospitalization. PCP will follow up on repeat cultures. Patient will continue with incentive spirometer at home. Patient with depression anxiety. At discharge patient will continue with her current medication of Zoloft 50 mg daily. Patient with acute on chronic anemia. Patient with history of iron deficiency anemia. Patient found to have B12 deficiency as well. Medications were adjusted during the course of her stay. At discharge she will continue with iron 325 mg 1 pill twice daily and vitamin B12 1000 mg daily. Recommend to recheck labCBC, iron and B12 lab in 4 to 6 weeks to monitor her progress. Diet: Regular Activity: Ad rosibel Followup: NONE,NONE [Primary Care Provider] - Time spent managing pt's care (in minutes): 55
[2020-07-26 09:57] LABS: Blood Morphology Comment NOT SEEN (NOT SEEN); Platelet Estimate ADEQ
== END 2020-07-26 10:59 | disposition home or self-care (01) | DRG 871 ==
LOC: ER 16:56 → ERHOLD 19:57 → 4TH 21:53
PROVIDERS: ADMIT Family Medicine; ATTEND Family Medicine
DX: A41.51 Sepsis due to Escherichia coli [E. coli] (principal); J18.9 Pneumonia, unspecified organism; N12 Tubulo-interstitial nephritis, not specified as acute or chronic; F41.9 Anxiety disorder, unspecified; F32.9 Major depressive disorder, single episode, unspecified; E86.0 Dehydration; N28.9 Disorder of kidney and ureter, unspecified; D50.9 Iron deficiency anemia, unspecified; D51.9 Vitamin B12 deficiency anemia, unspecified; R09.02 Hypoxemia; R00.0 Tachycardia, unspecified; Z90.49 Acquired absence of other specified parts of digestive tract; Z88.1 Allergy status to other antibiotic agents; Z56.0 Unemployment, unspecified; Z98.84 Bariatric surgery status; Z20.822 Contact with and (suspected) exposure to COVID-19
CPT/HCPCS: 36415; 71045; 71046; 74177; 76770; 80048; 80053; 80076; 81003; 81015; 81025; 82150; 82550; 82553; 82607; 82728; 83540; 83605; 83690; 83735; 84145; 84439; 84443; 84466; 84484; 85025; 85610; 85730; 87040; 87077; 87086; 87088; 87186; 87205; 93005; 93306; 94010; 96365; 96375; 99285; J0692; J1650; J2270; J2405; J3475; J7030; Q9967; U0003

== ENCOUNTER 2021-08-18 15:33 | Emergency (ER) | payer SELFPAY ==
--- OUTSIDE RECORDS SUMMARY | 2021-08-18 15:37 | XMS REPORT | Continuity of Care Document ---
:1985 Author Organization [facility] t Address [address] [place] [address] Care Team Providers Name Role Phone carol Attending Clinician Unavailable fermin Attending Clinician Unavailable Antonina Bartlett Attending Clinician [id number] Payers Payer Name Policy Type Policy Number Effective Date Expiration Date S bright [place] P [id number] 2017 Women(HTW) 00:00:00 [place] [id number] 2019 Women(HTW) 00:00:00 [place] P [id number] 2018 2019 Women(HTW) 00:00:00 00:00:00 Problems This patient has no known problems. Allergies, Adverse Reactions, Alerts Allergy Allergy Status Severity Reaction(s) Onset Inactive Treating Comm ents Source Name Type Date Date Clinician KEFLEX Drug Active High hives, [facility] allergy Criticali throws up. 09-03 [facility] (disorde ty 00:00: ty r) 00 Health ZITHROMA Drug Active High hives [facility] X allergy Criticali 706 Commun i (disorde ty 00:00: ty r) 00 Health NO KNOWN Drug Active Univers ALLERGIE Class ity of S [facility] cephalex DA Active [facility] azithrom DA Active [facility] ycin [facility] Social History Social Habit Start Date Stop Date Quantity Comments Source Sex Assigned At Universit y of [facility] Exposure to Not sure University of SARS-CoV-2 (event) [facility] albumin, serum 2020-03-11 2020-03-11 4.4 g/dL [facility] [...] if the patient is 2019-09-04 2019-09-04 No [facility] using/has used a 09:50:41 09:50:41 Health vaping item, Current, Former, Never Used, Not asked social history 2019-09-04 2019-09-04 reviewed today [facility] reviewed E&M 09:50:41 09:50:41 Health social history E&M 2019-09-04 2019-09-04 Pt's mom lives in [facility] 09:50:41 09:50:41 [place] pt's Health dad lives in [place] but does not have a relationship with them. Pt talks with her brothers every now and then.She is 1 of 3 siblings, middle child. for 10 years, 2 oldest children from first marriage. He (they were , medical issues). Pt lives with her three kids (12, 11, 2) and boyfriend. In [place], [place]. Pt is unemployed. Pt has an associate degree with a medical assistance certificate.Sexual orientation: Heterosexual. Pt likes to spend time with her kids, listen to music, likes to dance. The patient denies any hx of legal problems, or current problems with the law. Not catholic. sexual orientation 2019-09-04 2019-09-04 Heterosexual [facility] 09:50:41 09:50:41 Health home/family 2019-09-04 2019-09-04 Pt lives with her [facility] situation, 09:50:41 09:50:41 three kids (12, 11, Healt h assessment 2) and boyfriend. In [place], [place]. family support 2019-09-04 2019-09-04 Pt's mom lives in [place] [facility] 09:50:41 09:50:41 [place] pt's Health dad lives in [place] but does not have a relationship with them. Pt talks with her brothers every now and then.She is 1 of 3 siblings, middle child. for 10 years, 2 oldest children from first marriage. He (they were , medical issues). Smoking Status Start Date Stop Date Source Unknown if ever smoked [facility] Never smoked tobacco (finding) [facility] Medications Ordered Filled Start Stop Current Ordering Indication Dosage Frequency Signature Comments Components Source Medication Medication Date Date Medication? Clinician (SIG) Name Name (CLONAZEPAM 2019- Yes Chun Sarkar Take 1/2 [facility] ) 0.5 MG 10-31 Dhruv -1 tab by [facility] TABS 00:00: mouth ty 00 daily only Health as needed for anxiety. PROZAC Yes Chun Sarkar 1{Capsu 1xD Take 1 [facility] (FLUOXETINE 10-31 Dhruv le} capsule by Communi HCL) 20 MG 00:00: mouth ty CAPS 00 daily for Health a total dose of 30mg/day. PROZAC Yes Chun Sarkar Take 1 Leg acy (FLUOXETINE 9-02 Dhruv capsule by Communi HCL) 10 MG 00:00: mouth ty CAPS 00 daily for Health a total dose of 30mg/day. (HYDROXYZIN 2020- No Chun Sarkar Take 1/2-1 [facility] E HCL) 25 09-03- Dhruv tab by Com cecilia MG TABS 00:00: 00:00 mouth ty 00 :00 twice a Health day only as needed for anxiety or sleep. PROZAC 0 2020- No Chun Sarkar 2{Capsu 1xD Take 2 [facility] (FLUOXETINE 09-03 Dhruv le} capsules Communi HCL) 10 MG 00:00: 00:00 by mouth ty CAPS 00 :00 daily. Health Procedures Procedure Date / Time Performed Performing Clinician Sourc e Urine Drug 2020-02-20 15:52:59 Chun Bartlett [facility] Kdvaql-Pb-Qfkmk Health Diagnostic evaluation 2019-09-04 10:46:41 Chun Bartlett [facility] with medical - [id number] Health Encounters Start End Encounter Admission Attending Care Care Encounter Source Date/Time Date/Time Type Type Clinicians Facility Department ID 2020-12-15 Outpatient l[facility] [id number] [facility] 13:42:17 s [id number] [facility] 2020-12-15 Outpatient l[facility]adelainerijo [facility] [id number] [facility] 11:37:31 s [id number] [facility] 2020-12-15 Outpatient l[facility]adelainerijo [facility] [id number] [facility] 11:04:08 s [id number] [facility] 2020-12-15 Outpatient [facility]vitorrijo [facility] [id number] [facility] 10:51:57 s [id number] [facility] 2020-12-15 Outpatient [facility]torrijo [facility] [id number] [facility] 10:20:13 s [id number] [facility] 2020-12-15 Outpatient [facility]rijo [facility] [id number] [facility] 09:33:41 s [id number] Count Includes [facility] [employer] [facility] 2020-12-15 Outpatient [facility]torrijo [facility] [id number] [facility] 09:32:43 s [id number] [facility] 2020-12-15 Outpatient [facility]rijo [facility] [id number] [facility] 08:49:40 s [id number] Count Includes [facility] [employer] [facility] 2020-12-15 Outpatient [facility]torrijo [facility] [id number] [facility] 08:39:36 s [id number] [facility] 2020-12-15 Outpatient [facility]rijo [facility] [id number] [facility] 08:09:06 s [id number] [facility] 2020-12-15 Outpatient [facility]rijo [facility] [id number] [facility] 07:53:34 s [id number] Count Includes [facility] [employer] [facility] 2020-12-15 Outpatient [facility]torrijo [facility] [id number] [facility] 07:49:13 s [id number] Count Includes [facility] [employer] 2020-12-12 Outpatient l[facility]torrijo [facility] [id number] [facility] 22:03:18 s [id number] Count Includes [facility] [employer] 2020-12-12 Outpatient lc.[facility]torrijo [facility] [id number] [facility] 21:44:34 s [id number] [facility] 2020-12-12 Outpatient [facility]rijo [facility] [id number] [facility] 21:42:32 s [id number] [facility] 2020-12-12 Outpatient [facility]rijo [facility] [id number] [facility] 21:29:04 s [id number] [facility] 2020-12-12 Outpatient [facility]rijo [facility] [id number] [facility] 21:16:17 s [id number] [facility] 2020-12-12 Outpatient [facility]ri[facility] [id number] [facility] 21:10:21 s [id number] [facility] 2020-12-12 Outpatient [facility]rijo [facility] [id number] [facility] 20:48:15 s [id number] [facility] 2020-12-12 Outpatient [facility]rijo [facility] [id number] [facility] 20:28:00 s [id number] [facility] 2020-12-12 Outpatient [facility]rijo [facility] [id number] [facility] 19:51:58 s [id number] [facility] 2020-12-12 Outpatient [facility]rijo [facility] [id number] [facility] 19:46:14 s [id number] [facility] 2020-12-12 Outpatient [facility]rijo [facility] [id number] [facility] 19:44:32 s [id number] [facility] 2020-12-12 Outpatient [facility]rijo [facility] [id number] [facility] 19:30:39 s [id number] [facility] 2020-12-12 Outpatient [facility]rijo [facility] [id number] [facility] 19:26:07 s [id number] [facility] 2020-12-12 Outpatient [facility]rijo [facility] [id number] [facility] 18:55:22 s [id number] [facility] 2020-12-12 Outpatient [facility]rijo [facility] [id number] [facility] 18:54:32 s [id number] [facility] 2020-12-12 Outpatient [facility]rijo [facility] [id number] [facility] 18:44:22 s [id number] [facility] 2020-12-12 Outpatient [facility]rijo [facility] [id number] [facility] 18:37:08 s [id number] [facility] 2020-12-12 Outpatient [facility]rijo [facility] [id number] [facility] 18:34:37 s [id number] [facility] 2020-12-12 Outpatient [facility]rijo [facility] [id number] [facility] 18:32:05 s [id number] [facility] 2020-12-12 Outpatient [facility]rijo [facility] [id number] [facility] 18:30:06 s [id number] [facility] 2020-12-12 Outpatient l[facility]adelainerijo [facility] [id number] [facility] 18:29:24 s [id number] [facility] 2020-12-12 Outpatient l[facility]adelainerijo [facility] [id number] [facility] 18:27:10 s [id number] [facility] 2020-12-12 Outpatient lc.[facility]torrijo [facility] [id number] [facility] 18:24:10 s [id number] [facility] 2020-12-12 Outpatient lc.nyarp [facility] [id number] [facility] 18:22:45 [id number] [facility] 2020-12-12 Outpatient lc.nyarp [facility] [id number] [facility] 18:19:53 [id number] [facility] 2020-12-12 Outpatient lc.nyarp [facility] [id number] [facility] 18:18:28 [id number] [facility] 2020-12-12 Outpatient lc.nyarp [facility] [id number] [facility] 18:16:30 [id number] [facility] 2020-12-12 Outpatient lc.[facility]arp [facility] [id number] [facility] 18:09:19 [id number] [facility] 2020-12-12 Outpatient lc.nyarp [facility] [id number] [facility] 17:30:23 [id number] [facility] 2020-12-12 Outpatient lc.nyarp [facility] [id number] [facility] 17:18:28 [id number] [facility] 2020-12-12 Outpatient lc.mtarp [facility] [id number] [facility] 17:08:04 [id number] [facility] 2020-12-12 Outpatient lc.yoanna [facility] [id number] [facility] 16:49:50 [id number] [facility] 2020-05-09 2020-05-09 Office Dhruv [facility] [id number] [facility] 00:00:00 00:00:00 Visit Chun Sarkar [id number] Com cecilia ty Health 2020-04-18 2020-04-18 Office Dhruv [facility] [id number] [facility] 00:00:00 00:00:00 Visit Chun Sarkar [id number] Com cecilia ty Health 2020-04-02 2020-04-02 Emergency [facility] [id number] [facility] 21:24:00 21:25:00 [place] [id number] i ty of [place] 4.2.7.2.686 [facility] [id number] [address] 2020-04-02 2020-04-02 Emergency [facility] [id number] 21:24:00 21:25:00 [place] [id number] [place] 4.2.7.2.686 [place] [id number] [facility] 2020-04-02 2020-04-02 Emergency X [facility] ERT [id number] Univers 21:06:00 21:06:00 ity of [facility] 2020-02-20 2020-02-20 Office Dhruv [facility] [id number] [facility] 00:00:00 00:00:00 Visit [place] [id number] Com [facility]ilia ty Health 2020-01-16 2020-01-16 Office Dhruv [facility] [id number] [facility] 00:00:00 00:00:00 Visit Chun Sarkar [id number] Com cecilia ty Health 2019-12-06 2019-12-06 Office Dhruv [facility] [id number] [facility] 00:00:00 00:00:00 Visit Chun Sarkar [id number] Com [facility] 2019-11-01 2019-11-01 Office Dhruv [facility] [id number] [facility] 00:00:00 00:00:00 Visit Chun Sarkar [id number] Com [facility] 2019-09-04 2019-09-04 Office Dhruv [facility] [id number] [facility] 00:00:00 00:00:00 Visit Chun Sarkar [id number] Com [facility] 2019-06-26 2019-06-26 Emergency [facility] [id number] 98 [facility] 22:24:00 22:24:00 -[id number] [facility] Results Test Description Test Time Test Comments Results Result Comments Source potassium, serum 2020-03-11 11:44:00 Test Item Value Reference Range Interpretation Comme nts potassium, serum (test code = 2823-3) 4.4 mmol/L 3.5-5.2 [facility] Healthsodium, [id number] 11:44:00 Test Item Value Reference Range Interpretation Comments sodium, serum (test code = 2951-2) 140 mmol/L 134-144 [facility]/creatinine ratio, [id number] 11:44:00 Test Item Value Reference Range Interpretation Comments urea nitrogen/creatinine 11 (unknown unit) 9-23 ratio, serum (test code = 3097-3) [facility] HealtheGFR if [id number] 11:44:00 Test Item Value Reference Range Interpretation Comments eGFR if 133 mL/min/{1.73 m2} >59 (test code = 87272-5) [facility] CenterEstimated Glomerular Filtration Rate (calc)2020-03-11 11:44:00 Test Item Value Reference Range Interpretation Comments Estimated Glomerular 115 mL/min/{1.73 m2} >59 Filtration Rate (calc) (test code = 05669-9) [facility] Healthcreatinine, [id number] 11:44:00 Test Item Value Reference Range Interpretation Comments creatinine, serum (test code = 0.70 mg/dL 0.57-1.00 2160-0) [facility] nitrogen, [id number] 11:44:00 Test Item Value Reference Range Interpretation Comments urea nitrogen, blood (test code = 8 mg/dL 6-20 3094-0) [facility] glucose, [id number] 11:44:00 Test Item Value Reference Range Interpretation Comments blood glucose, random (test code = 93 mg/dL 65-99 2339-0) [facility] Centerimmature granulocytes, percentage of total cells, blood 2020-03-11 11:44:00 Test Item Value Reference Range Interpretation Comments immature granulocytes, percentage of 0 % total cells, blood (test code = 56742-0) [facility] Healthbasophil count, [id number] 11:44:00 Test Item Value Reference Range Interpretation Comments basophil count, absolute (test 0.0 x10E3/uL 0.0-0.2 code = 27010-2) [facility] HealthEosinophil Absolute [id number] 11:44:00 Test Item Value Reference Range Interpretation Comments Eosinophil Absolute Count (test 0.0 X10E3/UL 0.0-0.4 code = 71255-6) [facility] Centermonocyte count, blood, [id number] 11:44:00 Test Item Value Reference Range Interpretation Comments monocyte count, blood, automated 0.8 X10E3/UL 0.1-0.9 (test code = 742-7) [facility] Centerlymphocyte count, blood, [id number] 11:44:00 Test Item Value Reference Range Interpretation Comments lymphocyte count, blood, 2.0 X10E3/UL 0.7-3.1 automated (test code = 731-0) [facility] CenterAbsolute [id number] 11:44:00 Test Item Value Reference Range Interpretation Comments Absolute Neutrophils (test code 7.5 X10E3/UL 1.4-7.0 H = 53512-9) [facility] Centerbasophils as percent of blood [id number] 11:44:00 Test Item Value Reference Range Interpretation Comments basophils as percent of blood 0 % leukocytes (test code = 707-0) [facility] Healtheosinophils as percent of blood [id number] 11:44:00 Test Item Value Reference Range Interpretation Comments eosinophils as percent of blood 0 % leukocytes (test code = 713-8) [facility] Healthmonocytes as percent of blood [id number] 11:44:00 Test Item Value Reference Range Interpretation Comments monocytes as percent of blood 8 % leukocytes (test code = 5905-5) [facility] Centerlymphocytes as percent of blood [id number] 11:44:00 Test Item Value Reference Range Interpretation Comments lymphocytes as percent of blood 19 % leukocytes (test code = 736-9) [facility] Centerneutrophils as percent of blood [id number] 11:44:00 Test Item Value Reference Range Interpretation Comments neutrophils as percent of blood 73 % leukocytes (test code = 770-8) [facility] Centerplatelet [id number] 11:44:00 Test Item Value Reference Range Interpretation Comments platelet count (test code = 434 X10E3/UL 150-450 777-3) [facility] Centerred blood cell distribution [id number] 11:44:00 Test Item Value Reference Range Interpretation Comments red blood cell distribution width 16.0 % 11.7-15.4 H (test code = 788-0) [facility] corpuscular hemoglobin concentration, [id number] 11:44:00 Test Item Value Reference Range Interpretation Comments mean corpuscular hemoglobin 30.3 G/DL 31.5-35.7 L concentration, RBC (test code = 786-4) [facility] corpuscular hemoglobin, [id number] 11:44:00 Test Item Value Reference Range Interpretation Comments mean corpuscular hemoglobin, RBC 23.3 pg 26.6-33.0 L (test code = 785-6) [facility] corpuscular volume, [id number] 11:44:00 Test Item Value Reference Range Interpretation Comments mean corpuscular volume, RBC (test code 77 fL 79-97 L = 787-2) [facility] Centerhematocrit, [id number] 11:44:00 Test Item Value Reference Range Interpretation Comments hematocrit, blood (test code = 4544-3) 29.7 % 34.0-46.6 L [facility] Centerhemoglobin, [id number] 11:44:00 Test Item Value Reference Range Interpretation Comments hemoglobin, blood (test code = 9.0 g/dL 11.1-15.9 L 718-7) [facility] Centererythrocyte (RBC) [id number] 11:44:00 Test Item Value Reference Range Interpretation Comments erythrocyte (RBC) count (test 3.87 X10E6/UL 3.77-5.28 code = 789-8) [facility] Centerleukocyte count, [id number] 11:44:00 Test Item Value Reference Range Interpretation Comments leukocyte count, blood (test 10.4 X10E3/UL 3.4-10.8 code = 6690-2) [facility] Centerthyroid stimulating hormone, [id number] 11:44:00 Test Item Value Reference Range Interpretation Comments thyroid stimulating hormone, 0.992 u[IU]/mL 0.450-4.500 serum (test code = 3016-3) [facility] CenterLDL cholesterol, [id number] 11:44:00 Test Item Value Reference Range Interpretation Comments LDL cholesterol, serum (test code = 50 mg/dL 0-99 2088-1) [facility] Centervery low density joagcjluwbcp4317-03-12 11:44:00 Test Item Value Reference Range Interpretation Comments very low density lipoproteins (test 21 mg/dL 5-40 code = 1-7) [facility] CenterHDL cholesterol, [id number] 11:44:00 Test Item Value Reference Range Interpretation Comments HDL cholesterol, serum (test code = 86 mg/dL >39 2084-9) [facility] Centertriglyceride, serum, [id number] 11:44:00 Test Item Value Reference Range Interpretation Comments triglyceride, serum, fasting (test 122 mg/dL 0-149 code = 2571-8) [facility] Centercholesterol, [id number] 11:44:00 Test Item Value Reference Range Interpretation Comments cholesterol, serum (test code = 157 mg/dL 492-474 1684-3) [facility] Centeralanine aminotransferase (SGPT), [id number] 11:44:00 Test Item Value Reference Range Interpretation Comments alanine aminotransferase (SGPT), serum 11 1/L 0-32 (test code = 1742-6) [facility] Centeraspartate aminotransferase (SGOT), [id number] 11:44:00 Test Item Value Reference Range Interpretation Comments aspartate aminotransferase (SGOT), 17 1/L 0-40 serum (test code = 1920-8) [facility] Healthalkaline phosphatase, [id number] 11:44:00 Test Item Value Reference Range Interpretation Comments alkaline phosphatase, serum (test code 81 1/L 39-117 = 1783-0) [facility] Healthbilirubin, serum, [id number] 11:44:00 Test Item Value Reference Range Interpretation Comments bilirubin, serum, total (test code <0.2 mg/dL 0.0-1.2 = 1975-2) [facility] Healthalbumin/globulin ratio, [id number] 11:44:00 Test Item Value Reference Range Interpretation Comments albumin/globulin ratio, 1.6 (unknown unit) 1.2-2.2 serum (test code = 1759-0) [facility] Healthglobulin, [id number] 11:44:00 Test Item Value Reference Range Interpretation Comments globulin, serum (test code 2.7 (unknown unit) 1.5-4.5 = 2336-6) [facility] Healthalbumin, [id number] 11:44:00 Test Item Value Reference Range Interpretation Comments albumin, serum (test code = 1751-7) 4.4 g/dL 3.8-4.8 [facility] Centerprotein, total, [id number] 11:44:00 Test Item Value Reference Range Interpretation Comments protein, total, serum (test code = 7.1 g/dL 6.0-8.5 2885-2) [facility] Healthcalcium, [id number] 11:44:00 Test Item Value Reference Range Interpretation Comments calcium, serum (test code = 1999-8) 9.0 mg/dL 8.7-10.2 [facility] Centercarbon dioxide, venous [id number] 11:44:00 Test Item Value Reference Range Interpretation Comments carbon dioxide, venous blood (test 23 mmol/L - code = 2026-1) [facility] Healthchloride, [id number] 11:44:00 Test Item Value Reference Range Interpretation Comments chloride, serum (test code = 101 mmol/L 96-106 5-0) [facility] HealthUS PREG 1ST TRIM SINGLE LESS THAN 14 WEEKSCLINICAL INDICATION: O20.0 Threatened abortionTECHNIQUE: Transabdominal and transvaginal real time and doppler imaging of the female gravid pelvis are performed on the [employer].COMPARISON: 10/05/2016. FINDINGS:Uterus: 10.6 x 6.2 x [...] 2.5 x 1.8 cm.Addendum by: Timmy Martin, [facility] TULSALINICAL INDICATION: O20.0 Threatened abortionFINDINGS:COMPARISON STUDY: NoneTransvaginal evaluation [...] obtain clinical, laboratory and sonographic follow-up as indicated.IMPRESSION:7-kljo-4-day intrauterine gestational sac. pole is not identified. See comments.
--- NOTE | 2021-08-18 19:48 | EDPHYS ---
Physician Documentation [facility] Name: Sissy Brown Age: 35 yrs Sex: Female : 1985 Arrival Date: 08/18/2021 Time: 15:37 Bed 30 Private MD: ED Physician Santos Man HPI: 08/18 19:46 This 35 yrs old Female presents to ER via Ambulatory with complaints of Sore Throat. pm1 19:46 The patient presents with sore throat. The patient describes throat pain as constant, pm1 raw, scratchy. Onset: The symptoms/episode began/occurred 7 day(s) ago. Severity of symptoms: in the emergency department the symptoms have improved, mildly. Modifying factors: The symptoms are alleviated by over the counter medications, NSAIDs, Tylenol, the symptoms are aggravated by swallowing, Patient's oral intake status: good. Associated signs and symptoms: The patient has no apparent associated signs or symptoms. The patient has experienced similar episodes in the past, multiple times. The patient has not recently seen a physician. 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 - Social history:: Smoking status: Patient denies any tobacco usage or history of. ROS: 19:46 Constitutional: Negative for fever, chills, and weight loss, Cardiovascular: Negative pm1 for chest pain, palpitations, and edema, Respiratory: Negative for shortness of breath, cough, wheezing, and pleuritic chest pain, Abdomen/GI: Negative for abdominal pain, nausea, vomiting, diarrhea, and constipation, Back: Negative for injury and pain. 19:46 Skin: Negative for injury, rash, and discoloration, Neuro: Negative for headache, weakness, numbness, tingling, and seizure. 19:46 ENT: Positive for sore throat, Negative for ear pain. 19:46 All other systems are negative. Exam: 19:46 Constitutional: This is a well developed, well nourished patient who is awake, alert, pm1 and in no acute distress. Head/Face: Normocephalic, atraumatic. 19:46 Skin: Warm, dry with normal turgor. Normal color with no rashes, no lesions, and no evidence of cellulitis. MS/ Extremity: Pulses equal, no cyanosis. Neurovascular intact. Full, normal range of motion. 19:46 ENT: Posterior pharynx: Tonsils: bilaterally enlarged, with erythema, no exudate, no ulcerations, peritonsillar mass, is not appreciated. 19:46 Cardiovascular: Exam negative for acute changes, Rate: normal, Rhythm: regular, Pulses: no pulse deficits are appreciated. 19:46 Respiratory: Exam negative for acute changes, respiratory distress, shortness of breath. 19:46 Neuro: Exam negative for acute changes, Orientation: is normal, Mentation: is normal, Motor: is normal, moves all fours. Vital Signs: 17:03 BP 137 / 91; Pulse 86; Resp 18 S; Temp 99.3(TE); Pulse Ox 100% on R/A; Weight 63.5 kg aa5 (R); Height 5 ft. 3 in. (160.02 cm) (R); 19:58 BP 132 / 84; Pulse 78; Resp 18 S; Pulse Ox 97% on R/A; as6 17:03 Body Mass Index 24.80 (63.50 kg, 160.02 cm) aa5 MDM: 19:39 Patient medically screened. pm1 19:46 Data reviewed: vital signs. Data interpreted: Pulse oximetry: on room air is 100 %. pm1 Interpretation: normal. Counseling: I had a detailed discussion with the patient and/or guardian regarding: the historical points, exam findings, and any diagnostic results supporting the discharge/admit diagnosis, lab results, the need for outpatient follow up, to return to the emergency department if symptoms worsen or persist or if there are any questions or concerns that arise at home. 08/18 17:06 Order name: Strep; Complete Time: 19:40 aa5 08/18 17:06 Order name: Flu; Complete Time: 19:40 aa5 08/18 17:06 Order name: COVID-19 SARS RT PCR (Document "Date of Onset" if Symptomatic); Complete aa5 Time: 19:40 Administered Medications: 19:56 Drug: Decadron (dexamethasone) 10 mg Route: IM; Site: right gluteus; as6 19:59 Follow up: Response: No adverse reaction as6 Disposition: 20:56 Co-signature as Attending Physician, Santos Man MD I agree with the assessment and kdr plan of care. Disposition Summary: 08/18/21 19:47 Discharge Ordered Location: Home pm1 Problem: new pm1 Symptoms: have improved pm1 Condition: Stable pm1 Diagnosis - Streptococcal pharyngitis pm1 Followup: pm1 - With: Emergency Department - When: As needed - Reason: Worsening of condition Followup: pm1 - With: Private Physician - When: 2 - 3 days - Reason: Recheck today's complaints, Continuance of care, Re-evaluation by your physician Discharge Instructions: - Discharge Summary Sheet pm1 - Strep Throat, Adult pm1 Forms: - Medication Reconciliation Form pm1 - Thank You Letter pm1 - Work release form pm1 - Antibiotic Education pm1 - Prescription Opioid Use pm1 Prescriptions: - Amoxicillin 500 mg Oral Capsule - take 1 capsule by ORAL route every 8 hours for 10 days; 30 tablet; Refills: 0, pm1 Product Selection Permitted Signatures: Dispatcher [employer] EDDC Santos Man MD MD [facility] Stephanie Baer, RN RN aa5 Shan Smith NP REPRODUCTIVE ENDOCRINOLOGIST pm1 Rene Hammonds RN RN as6
--- NOTE | 2021-08-18 19:48 | ER ---
Nurse's Notes [facility] Name: Sissy Brown Age: 35 yrs Sex: Female : 1985 Arrival Date: 08/18/2021 Time: 15:37 Bed 30 Private MD: Diagnosis: Streptococcal pharyngitis Presentation: 08/18 17:03 Chief complaint: Patient states: sore throat and fever that began 5-6 days ago. aa5 17:03 Method Of Arrival: Ambulatory aa5 17:03 Acuity: SANTIAGO 4 aa5 17:03 Initial Sepsis Screen: Does the patient meet any 2 criteria? No. Patient's initial aa5 sepsis screen is negative. Does the patient have a suspected source of infection? No. Patient's initial sepsis screen is negative. Risk Assessment: Do you want to hurt yourself or someone else? Patient reports no desire to harm self or others. Onset of symptoms was July 2021. 17:03 Coronavirus screen: fever, sore throat. Ebola Screen: No symptoms or risks identified aa5 at this time. 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 - Social history:: Smoking status: Patient denies any tobacco usage or history of. Screenin:56 Abuse screen: Denies threats or abuse. Denies injuries from another. Nutritional as6 screening: No deficits noted. Tuberculosis screening: No symptoms or risk factors identified. Fall Risk None identified. Assessment: 19:57 General: Appears in no apparent distress. Behavior is calm, cooperative. Pain: as6 Complains of pain in throat. Neuro: Rucker Agitation-Sedation Scale (RASS): 0 - Alert and Calm Level of Consciousness is awake, alert, obeys commands, Oriented to person, place, time, situation. Respiratory: Airway is patent Respiratory effort is even, unlabored. EENT: Throat is reddened. Vital Signs: 17:03 BP 137 / 91; Pulse 86; Resp 18 S; Temp 99.3(TE); Pulse Ox 100% on R/A; Weight 63.5 kg aa5 (R); Height 5 ft. 3 in. (160.02 cm) (R); 19:58 BP 132 / 84; Pulse 78; Resp 18 S; Pulse Ox 97% on R/A; as6 17:03 Body Mass Index 24.80 (63.50 kg, 160.02 cm) aa5 ED Course: 15:37 Patient arrived in ED. am2 17:03 Arm band placed on. aa5 17:04 Triage completed. aa5 17:11 COVID-19 SARS RT PCR (Document "Date of Onset" if Symptomatic) Sent. mb7 17:11 Flu Sent. mb7 17:11 Strep Sent. mb7 19:28 Rene Hammonds, RN is Primary Nurse. as6 19:30 Shan Smith NP is PHCP. pm1 19:30 Santos Man MD is Attending Physician. pm1 19:56 Bed in low position. Call light in reach. as6 19:56 No provider procedures requiring assistance completed. Patient did not have IV access as6 during this emergency room visit. Administered Medications: 19:56 Drug: Decadron (dexamethasone) 10 mg Route: IM; Site: right gluteus; as6 19:59 Follow up: Response: No adverse reaction as6 Medication: 19:58 VIS not applicable for this client. as6 Outcome: 19:47 Discharge ordered by . pm1 19:56 Discharged to home ambulatory. as6 19:56 Condition: stable 19:56 Discharge instructions given to patient, Instructed on discharge instructions, follow up and referral plans. medication usage, Demonstrated understanding of instructions, follow-up care, medications, Prescriptions given X 1. 19:59 Patient left the ED. as6 Signatures: Stephanie Baer, RN RN aa5 Shan Smith, JOCELYN DEVIL TENDER pm1 Jyothi Roach am2 Rene Hammonds, FLORES TANNER as6 Deneen Newell mb7 Corrections: (The following items were deleted from the chart) 17:07 17:03 Pulse 86bpm; Resp 18bpm; Spontaneous; Pulse Ox 100% RA; Temp 99.3F Temporal; 63.5 aa5 kg Reported; Height 5 ft. 3 in. Reported; BMI: 24.8; aa5
[2021-08-18] MEDS ORDERED: dexAMETHasone 10 MG/ML VIAL ONE (20:00)
[2021-08-18 20:08] VITALS: TEMP 99.3
[2021-08-18 20:16] VITALS: BP 132/84; O2SAT 97
== END 2021-08-18 19:59 | disposition home or self-care (01) ==
LOC: ER 15:33
DX: J02.0 Streptococcal pharyngitis (principal); Z20.822 Contact with and (suspected) exposure to COVID-19; Z88.3 Allergy status to other anti-infective agents; Z88.8 Allergy status to other drugs, medicaments and biological substances
CPT/HCPCS: 87081; 87804; 96372; 99283; J1100; U0003

== ENCOUNTER 2023-12-13 19:51 | Emergency (ER) | payer SELFPAY ==
--- OUTSIDE RECORDS SUMMARY | 2023-12-13 19:55 | XMS REPORT | Continuity of Care Document ---
Author Name Unknown Address [address] [facility] [address] [place] [address] [facility] thconnect Address [address] [facility] [address] [place] [address] Care Team Providers Care Fruit Preserver Name Role Phone Chun Bartlett Attending Clinician [phone] Latia Ireland Attending Clinician [phone] Antonina Og Attending Clinician UnaSilverio Argueta Attending Clinician UnavailMariana Benites Attending Clinician Unavailable Sylwia Macario Attending Clinician Unavailable Gwen Saucedo Attending Clinician UnavailChristy Vela Attending Clinician Unavail able Zhane Galvez Attending Clinician Unavailable David Burk Attending Clinician Unavailable Zheng Garza Attending Clinician UnaChun Hines Attending Clinician Unavailable Gwen Novoa Attending Clinician Unavailab le Payers Payer Name Policy Type Policy Number Effective Date Expirati on Date Source Sliding Fee - Cat 1 CI [id number] 2018 00:00:00 2019 00:00:00 [facility] Allergies, Adverse Reactions, Alerts Allergy Name Allergy Type Status Severity Reaction(s) Onset Date Inactive Date Treating Clinician Comments Source KEFLEX Drug allergy (disorde r) Active High Criticali ty hives, throws up. 09-03 00:00: 00 [facility] ZITHROMA X Drug allergy (disorde r) Active High Criticali ty hives 09-03 00:00: 00 [facility] cephalex in DA Active [facility] azithrom ycin DA Active [facility] NO KNOWN ALLERGIE S Drug Class Active [facility] Social History Social Habit Start Date Stop Date Quantity Comments Source Sex Assigned At [facility] Exposure to SARS-CoV-2 (event) Not sure [facility] albumin, serum 2020-03-11 11:44:00 2020-03-11 11:44:00 4.4 g/dL [facility] time of call 2020-03-08 10:32:47 2020-03-08 10:32:47 03/08/2020 10:32 AM [facility] tobacco use (cigarettes, cigar, chew, pipe) 2019-12-06 17:43:03 2019-12-06 17:43:03 Currently [facility] drug use 2019-09-04 09:50:41 2019-09-04 09:50:41 Never [facility] alcohol use 2019-09-04 09:50:41 2019-09-04 09:50:41 Previously [facility] if the patient is using/has used a vaping item, Current, Former, Never Used, Not asked 2019-09-04 09:50:41 2019-09-04 09:50:41 No [facility] social history reviewed E&M 2019-09-04 09:50:41 2019-09-04 09:50:41 reviewed today [facility] social history E&M 2019-09-04 09:50:41 2019-09-04 09:50:41 Pt's mom lives in [place] pt's dad lives in [place] but does not have a relationship with them. Pt talks with her brothers every now and then.She is 1 of 3 siblings, middle child. for 10 years, 2 oldest children from first marriage. He (they were , medical issues). Pt lives with her three kids (12, 11, 2) and boyfriend. In [place], [place]. Pt is unemployed. Pt has an associate degree with a medical assistance certificate.Sexual orientation: Heterosexual. Pt likes to spend time with her kids, listen to music, likes to dance. The patient denies any hx of legal problems, or current problems with the law. Not latter day. [facility] sexual orientation 2019-09-04 09:50:41 2019-09-04 09:50:41 Heterosexual [facility] home/family situation, assessment 2019-09-04 09:50:41 2019-09-04 09:50:41 Pt lives with her three kids (12, 11, 2) and boyfriend. In [place]. [facility] family support 2019-09-04 09:50:41 2019-09-04 09:50:41 Pt's mom lives in [place] pt's dad lives in [place] but does not have a relationship with them. Pt talks with her brothers every now and then.She is 1 of 3 siblings, middle child. for 10 years, 2 oldest children from first marriage. He (they were , medical issues). [facility] Smoking Status Start Date Stop Date Source Unknown if ever smoked Un[facility] Never smoked tobacco (finding) [facility] Medications Ordered Medication Name Filled Medication Name Start Date Stop Date Current Medication? Ordering Clinician Indication Dosage Frequency Signature (SIG) Comments Components Source (CLONAZEPAM ) 0.5 MG TABS 10-31 00:00: 00 Yes Chun Bartlett MD Take 1/2 -1 tab by mouth daily only as needed for anxiety. [facility] PROZAC (FLUOXETINE HCL) 20 MG CAPS 10-31 00:00: 00 Yes Chun Bartlett MD 1{Capsu le} 1xD Take 1 capsule by mouth daily for a total dose of 30mg/day. [facility] PROZAC (FLUOXETINE HCL) 10 MG CAPS 10-31 00:00: 00 Yes Chun Bartlett MD Take 1 capsule by mouth daily for a total dose of 30mg/day. [facility] (HYDROXYZIN E HCL) 25 MG TABS 09-03 00:00: 00 10-31 00:00 :00 No Chun Bartlett MD Take 1/2-1 tab by mouth twice a day only as needed for anxiety or sleep. [facility] PROZAC (FLUOXETINE HCL) 10 MG CAPS 09-03 00:00: 00 10-31 00:00 :00 No Chun Bartlett MD 2{Capsu le} 1xD Take 2 capsules by mouth daily. [facility] Procedures Procedure Date / Time Performed Performing Clinicia n Source Urine Drug Tnagnl-Os-Xrzhr 2020-02-20 15:52:59 Chun Bartlett [facility] Diagnostic evaluation with medical - [id number] 2019-09-04 10:46:41 Chun Bartlett [facility] Encounters Start Date/Time End Date/Time Encounter Type Admission Type Attending [facility] Care Department Encounter ID Source 2020-05-09 00:00:00 2020-05-09 00:00:00 Office Visit Chun Bartlett [facility] Encounter/ [id number] [facility] 2020-05-09 00:00:00 2020-05-09 00:00:00 In-person encounter Chun Bartlett [facility] [id number] [facility] 2020-04-18 00:00:00 2020-04-18 00:00:00 Office Visit Chun Bartlett [facility] Encounter/ [id number] [facility] 2020-04-18 00:00:00 2020-04-18 00:00:00 In-person encounter Chun Bartlett [facility] [id number] [facility] 2020-04-16 00:00:00 2020-04-16 00:00:00 Office Visit Latia Ireland [facility] Encounter/ [id number] [facility] 2020-04-02 21:24:00 2020-04-02 21:25:[address] [facility] [id number] 2020-04-02 21:24:00 2020-04-02 21:25:[address] [facility] [id number] [facility] 2020-04-02 21:06:00 2020-04-02 21:06:00 Emergency [facility] [id number] [facility] 2020-03-19 00:00:00 2020-03-19 00:00:00 Office Visit Latia Ireland, Antonina Lala, Chun Cruz [facility] Encounter/ [id number] [facility] 2020-03-12 00:00:00 2020-03-12 00:00:00 Office Visit Chun Bartlett Emmanuel [facility] Encounter/ [id number] [facility] 2020-03-11 00:00:00 2020-03-11 00:00:00 Office Visit Chun Bartlett [facility] Encounter/ [id number] [facility] 2020-03-08 00:00:00 2020-03-08 00:00:00 Office Visit Chun Bartlett, Mariana Macario, Sylwia velarde, Latia Soria, Christy Long [facility] Encounter/ [id number] [facility] 2020-03-08 00:00:00 2020-03-08 00:00:00 Office Visit Chun Bartlett Emmanuel Anderson, Soledad Herrera, Zoe [facility] Encounter/ [id number] [facility] 2020-02-24 00:00:00 2020-02-24 00:00:00 Office Visit David Burk [facility]/ [id number] [facility] 2020-02-24 00:00:00 2020-02-24 00:00:00 Office Visit David Burk [facility] [id number] [facility] 2020-02-20 00:00:00 2020-02-20 00:00:00 Office Visit Chun Bartlett [facility] Encounter/ [id number] 2020-02-20 00:00:00 2020-02-20 00:00:00 In-person encounter Chun Bartlett [facility] [id number] [facility] 2020-02-07 00:00:00 2020-02-07 00:00:00 Office Visit Latia Ireland [facility] Encounter/ [id number] [facility] 2020-01-16 00:00:00 2020-01-16 00:00:00 Office Visit Chun Bartlett [facility] Encounter/ [id number] [facility] 2020-01-16 00:00:00 2020-01-16 00:00:00 In-person encounter DhruvChun sanches [facility] [id number] [facility] 2019-12-06 00:00:00 2019-12-06 00:00:00 Office Visit Chun Bartlett [facility] Encounter/ [id number] [facility] 2019-12-06 00:00:00 2019-12-06 00:00:00 In-person encounter DhruvChun [facility] [id number] [facility] 2019-11-09 00:00:00 2019-11-09 00:00:00 Office Visit Chun Bartlett Emmanuel Zuniga Flores, Carlos E [facility] Encounter/ [id number] [facility] 2019-11-01 00:00:00 2019-11-01 00:00:00 Office Visit Chun Bartlett [facility] Encounter/ [id number] [facility] 2019-11-01 00:00:00 2019-11-01 00:00:00 Office Visit DhruvChun [facility] Encounter/ [id number] [facility] 2019-11-01 00:00:00 2019-11-01 00:00:00 In-person encounter DhruvChun [facility] [id number] [facility] 2019-10-30 00:00:00 2019-10-30 00:00:00 Office Visit Chun Bartlett Silverio Lala Chun Rouse [facility] Encounter/ [id number] [facility] 2019-09-04 00:00:00 2019-09-04 00:00:00 Office Visit Chun Bartlett [facility] Encounter/ [id number] [facility] 2019-09-04 00:00:00 2019-09-04 00:00:00 Office Visit Chun Bartlett [facility] Encounter/ [id number] [facility] 2019-09-04 00:00:00 2019-09-04 00:00:00 In-person encounter DhruvChun sanches [facility] [id number] [facility] 2019-08-31 00:00:00 2019-08-31 00:00:00 Office Visit Chun Bartlett [facility] Encounter/ [id number] [facility] 2019-08-31 00:00:00 2019-08-31 00:00:00 Office Visit Chun Bartlett [facility] Encounter/ [id number] [facility] 2019-08-31 00:00:00 2019-08-31 00:00:00 Office Visit DhruvChun sanches [facility] Encounter/ [id number] [facility] 2019-08-31 00:00:00 2019-08-31 00:00:00 Office Visit Chun Bartlett [facility] Encounter/ [id number] [facility] 2019-08-16 00:00:00 2019-08-16 00:00:00 Office Visit Zhane Galvez [facility] Encounter/ [id number] [facility] 2019-06-26 22:24:00 2019-06-26 22:24:00 Emergency [facility] [id number] [facility] 2019-06-20 00:00:00 2019-06-20 00:00:00 Office Visit Antonina Espinoza [facility] Encounter/ [id number] [facility] 2018-07-04 00:00:00 2018-07-04 00:00:00 Office Visit Gwen Novoa [facility] Encounter/ [id number] [facility] Results Test Description Test Time Test Comments Results Result Co mments Source [facility] percent [facility] blood [id number] 11:44:00* Test Item Value Reference Range Interpretation Comme nts neutrophils as percent of bl ood leukocytes (test code = 770-8) 73 % [facility] Centerplatelet [id number] 11:44:00* Test Item Value Reference Range Interpretation Comme [facility] platelet count (test code = 777-3) 434 X10E3/UL 150-450 [facility] blood cell distribution [id number] 11:44:00* Test Item Value Reference Range Interpretation Comme [facility] red blood cell distribution width (test code = 788-0) 16.0 % 11.7-15.4 H [facility] corpuscular hemoglobin concentration, [id number] 11:44:00* Test Item Value Reference Range Interpretation Comme [facility] mean corpuscular hemoglobin concentration, RBC (test code = 786-4) 30.3 G/DL 31.5-35.7 L [facility] corpuscular hemoglobin, [id number] 11:44:00* Test Item Value Reference Range Interpretation Comme [facility] mean corpuscular hemoglobin, RBC (test code = 785-6) 23.3 pg 26.6-33.0 L [facility] corpuscular volume, [id number] 11:44:00* Test Item Value Reference Range Interpretation Comme [facility] mean corpuscular volume, RBC (test code = 787-2) 77 fL 79-97 L [facility]hematocrit, [id number] 11:44:00* Test Item Value Reference Range Interpretation Comme [facility] hematocrit, blood (test code = 4544-3) 29.7 % 34.0-46. 6 L [facility] Centerhemoglobin, [id number] 11:44:00* Test Item Value Reference Range Interpretation Comme [facility] hemoglobin, blood (test code = 718-7) 9.0 g/dL 11.1-15.9 L [facility] Centererythrocyte (RBC) [id number] 11:44:00* Test Item Value Reference Range Interpretation Comme [facility] erythrocyte (RBC) count (reid t code = 789-8) 3.87 X10E6/UL 3.77-5.28 [facility] Centerleukocyte count, [id number] 11:44:00* Test Item Value Reference Range Interpretation Comme [facility] leukocyte count, blood (test code = 6690-2) 10.4 X10E3/UL 3.4-10.8 [facility] Centerthyroid stimulating hormone, [id number] 11:44:00* Test Item Value Reference Range Interpretation Comme [facility] thyroid stimulating hormone, serum (test code = 3016-3) 0.992 u[IU]/mL 0.450-4.500 [facility] CenterLDL cholesterol, [id number] 11:44:00* Test Item Value Reference Range Interpretation Comme [facility] LDL cholesterol, serum (test code = 2089-1) 50 mg/dL 0-99 [facility] low density [id number] 11:44:00* Test Item Value Reference Range Interpretation Comme [facility] very low density lipoprotein s (test code = 2091-7) 21 mg/dL 5-40 [facility] CenterHDL cholesterol, [id number] 11:44:00* Test Item Value Reference Range Interpretation Comme [facility] HDL cholesterol, serum (test code = 2085-9) 86 mg/dL >39 [facility] Centertriglyceride, serum, [id number] 11:44:00* Test Item Value Reference Range Interpretation Comme [facility] triglyceride, serum, fasting (test code = 2571-8) 122 mg/dL 0-149 [facility]cholesterol, [id number] 11:44:00* Test Item Value Reference Range Interpretation Comme nts cholesterol, serum (test cod e = 2093-3) 157 mg/dL 100-199 [facility] Centeralanine aminotransferase (SGPT), [id number] 11:44:00 * Test Item Value Reference Range Interpretation Comme nts alanine aminotransferase (SG PT), serum (test code = 1742-6) 11 1/L 0-32 [facility] Centeraspartate aminotransferase (SGOT), [id number] 11:44:00* Test Item Value Reference Range Interpretation Comme nts aspartate aminotransferase ( SGOT), serum (test code = 1920-8) 17 1/L 0-40 [facility] Centeralkaline phosphatase, [id number] 11:44:00* Test Item Value Reference Range Interpretation Comme nts alkaline phosphatase, serum (test code = 1783-0) 81 1/L 39-117 [facility]bilirubin, serum, [id number] 11:44:00* Test Item Value Reference Range Interpretation Comme nts bilirubin, serum, total (reid t code = 1975-2) <0.2 mg/dL 0.0-1.2 [facility] Healthalbumin/globulin ratio, [id number] 11:44:00* Test Item Value Reference Range Interpretation Comme nts albumin/globulin ratio, serum (test code = 1759-0) 1.6 (unknown unit) 1.2-2.2 [facility] Healthglobulin, [id number] 11:44:00* Test Item Value Reference Range Interpretation Comme nts globulin, serum (test code = 2336-6) 2.7 (unknown unit) 1.5-4.5 [facility] Healthalbumin, [id number] 11:44:00* Test Item Value Reference Range Interpretation Comme nts albumin, serum (test code = 1751-7) 4.4 g/dL 3.8-4.8 [facility] Healthprotein, total, [id number] 11:44:00* Test Item Value Reference Range Interpretation Comme nts protein, total, serum (test code = 2885-2) 7.1 g/dL 6.0-8.5 [facility] Healthcalcium, [id number] 11:44:00* Test Item Value Reference Range Interpretation Comme nts calcium, serum (test code = 2000-8) 9.0 mg/dL 8.7-10.2 [facility] Centercarbon dioxide, venous [id number] 11:44:00* Test Item Value Reference Range Interpretation Comme nts carbon dioxide, venous blood (test code = 2027-1) 23 mmol/L 20-29 [facility] Healthchloride, [id number] 11:44:00* Test Item Value Reference Range Interpretation Comme nts chloride, serum (test code = 2075-0) 101 mmol/L 96-106 [facility] Healthpotassium, [id number] 11:44:00* Test Item Value Reference Range Interpretation Comme nts potassium, serum (test code = 2823-3) 4.4 mmol/L 3.5-5.2 [facility] Centersodium, [id number] 11:44:00* Test Item Value Reference Range Interpretation Comme nts sodium, serum (test code = 2951-2) 140 mmol/L 134-144 [facility] Centerurea nitrogen/creatinine ratio, [id number] 11:44:00 * Test Item Value Reference Range Interpretation Comme nts urea nitrogen/creatinine ratio, serum (test code = 3097-3) 11 (unknown unit) 9-23 [facility] HealtheGFR if [id number] 11:44:00* Test Item Value Reference Range Interpretation Comme nts eGFR if (test code = 88760-3) 133 mL/min/{1.73 m2} >59 [facility] CenterEstimated Glomerular Filtration Rate (calc)2020-03-11 11:44:00* Test Item Value Reference Range Interpretation Comme nts Estimated Glomerular Filtration Rate (calc) (test code = 52829-0) 115 mL/min/{1.73 m2} >59 [facility] Centercreatinine, [id number] 11:44:00* Test Item Value Reference Range Interpretation Comme nts creatinine, serum (test code = 2160-0) 0.70 mg/dL 0.57-1.00 [facility] nitrogen, [id number] 11:44:00* Test Item Value Reference Range Interpretation Comme nts urea nitrogen, blood (test c ode = 3094-0) 8 mg/dL 6-20 [facility] Centerblood glucose, [id number] 11:44:00* Test Item Value Reference Range Interpretation Comme nts blood glucose, random (test code = 2339-0) 93 mg/dL 65-99 [facility] Centerimmature granulocytes, percentage of total cells, blood 2020-03-11 11:44:00* Test Item Value Reference Range Interpretation Comme nts immature granulocytes, perce ntage of total cells, blood (test code = 42935-2) 0 % [facility] Centerbasophil count, [id number] 11:44:00* Test Item Value Reference Range Interpretation Comme nts basophil count, absolute (te st code = 38091-8) 0.0 x10E3/uL 0.0-0.2 [facility] HealthEosinophil Absolute [id number] 11:44:00* Test Item Value Reference Range Interpretation Comme nts Eosinophil Absolute Count (t est code = 11089-6) 0.0 X10E3/UL 0.0-0.4 [facility] Centermonocyte count, blood, [id number] 11:44:00* Test Item Value Reference Range Interpretation Comme nts monocyte count, blood, autom ated (test code = 742-7) 0.8 X10E3/UL 0.1-0.9 [facility] Centerlymphocyte count, blood, [id number] 11:44:00* Test Item Value Reference Range Interpretation Comme nts lymphocyte count, blood, automated (test code = 731-0) 2.0 X10E3/UL 0.7-3.1 [facility] CenterAbsolute [id number] 11:44:00* Test Item Value Reference Range Interpretation Comme nts Absolute Neutrophils (test c ode = 80942-3) 7.5 X10E3/UL 1.4-7.0 H [facility] Centerbasophils as percent of blood [id number] 11:44:00* Test Item Value Reference Range Interpretation Comme nts basophils as percent of bloo d leukocytes (test code = 707-0) 0 % [facility] Centereosinophils as percent of blood [id number] 11:44:00* Test Item Value Reference Range Interpretation Comme nts eosinophils as percent of bl ood leukocytes (test code = 713-8) 0 % [facility] Centermonocytes as percent of blood [id number] 11:44:00* Test Item Value Reference Range Interpretation Comme nts monocytes as percent of bloo d leukocytes (test code = 5905-5) 8 % [facility] CenterUS PREG 1ST TRIM SINGLE LESS THAN 14 WEEKSCLINICAL INDICATION: O20.0 Threatened abortionTECHNIQUE: Transabdominal and transvaginal real time and doppler imaging of the female gravid pelvis are performed on the [employer].COMPARISON: 10/05/2016. FINDINGS:Uterus: 10.6 x 6.2 x 6.9 cm. Single viable IUP with crown rump length of8.5 cm consistent with a gestational age of 7 weeks. Mean sac diameter consistent with a gestational age of 9 weeks, 5 days. Normal intrauterine growth compared to 10/05/2016. heart rate is measured at 122 beats per minute.Right Ovary: 2.8 x 2.5 x 3.3 cm.Left Ovary: 2.6 x 2.4 x 2.9 cm.Adnexa:No free fluid or adnexal mass.IMPRESSION:Single viable IUP of approximately 7 weeks gestation.US PREG 1ST TRIM SINGLE LESS THAN 14 WEEKSAddendum created at 10/08/2016 11:58:45 AM:Correction:The right ovary measures 3.0 x 2.5 x 1.8 cm.Addendum by: Timmy Martin, [facility]ICAL INDICATION: O20.0 Threatened abortionFINDINGS:COMPARISON STUDY: [...] ovary measures 3.0 x 2.50 point 8 cm. The left ovary measures 2.7 x 2.0 x 1.9 cm. There are several small ovarian follicles bilaterally. No ovarian cyst or mass is noted.There is no mass or fluid collection within the cul-de-sac.Pleasecorrelate this clinically and obtain clinical, laboratory and sonographic follow-up as indicated.IMP RESSION:1-fqpr-1-day intrauterine gestational sac. pole is not identified. See comments.
[2023-12-13] MEDS ORDERED: NA CHLORIDE 0.9% 1,000 ML ONE (20:56)
[2023-12-13 21:08] LABS: PT Prothrombin Time 11.9 SECONDS (9.4-12.5); Protime INR 1.06
[2023-12-13 21:09] LABS: Absolute Lymphocytes (CBC) 4.9 K/uL (0.7-4.9); Absolute Monocytes 0.8 K/uL (0.1-1.3); Absolute Neutrophil 2.9 K/uL (1.8-8.0); Basophils % 0.5 % (0-1.3); Eosinophils % 0.2 % (0-4.4); Hematocrit 25.7 % (36.0-45.0); Hemoglobin 8.1 g/dL (12.0-15.0); Lymphocytes % 56.9 % (15.3-44.8); MCH 21.3 pg (27.0-35.0); MCHC 31.6 g/dL (32.0-36.0); MCV 67.2 fL (80-100); MPV 7.1 fL (7.6-11.3); Monocytes % 9.1 % (3.3-12.3); Neutrophils % 33.3 % (41.7-73.7); Nucleated Red Blood Cells % 0.2 % (0-0); Platelets 571 thou/uL (152-406); RBC Red Blood Cell Count 3.82 M/uL (3.86-4.86); Red Cell Distribution Width 16.7 % (12.1-15.2)
--- NOTE | 2023-12-13 21:24 | RAD REPORT ---
EXAMINATION: ONE VIEW CHEST XR CLINICAL INDICATION: Female, 38 years old.,COUGH TECHNIQUE: Frontal chest projection is submitted. Examination is limited by patient positioning and t echnique. COMPARISON: 07/25/2020 FINDINGS: The lungs are well inflated and clear. No pneumothorax or sizable effusion. The heart is normal in s ize. IMPRESSION: No acute intrathoracic abnormalities.
[2023-12-13 21:25] LABS: ALT/SGPT 85 U/L (13-56); AST/SGOT 52 U/L (15-37); Albumin 3.1 g/dL (3.4-5.0); Albumin/Globulin Ratio 0.7 (1.1-1.8); Alkaline Phosphatase 95 U/L (45-117); Anion Gap 8.5 mEq/L (5.0-15.0); BUN Blood Urea Nitrogen 11 mg/dL (7-18); Bicarbonate 27 mEq/L (21-32); Bilirubin Direct < 0.2 mg/dL (0-0.2); Bilirubin Indirect, Calculated 0.1 mg/dL (0.2-0.8); Bilirubin Total 0.3 mg/dL (0.2-1.0); Globulin 4.3 g/dL (2.3-3.5); Glomerular Filtration Rate 109 ml/min (=/>90); Glucose Level 100 mg/dL (74-106); Lipase 47 U/L (13-75); NT PRO-BNP 64 pg/mL (<125); Potassium 3.5 mEq/L (3.5-5.1); Protein, Total 7.4 g/dL (6.4-8.2); Sodium Level 137 mEq/L (136-145); Troponin High Sensitivity < 3.0 pg/mL (<58.9)
[2023-12-13 21:42] LABS: SARS-CoV-2 Antigen CONTROL BLUE LINE VIS/BG OK; SARS-CoV-2 Antigen Rapid Res Negative (Negative)
[2023-12-13 22:39] LABS: Specific Gravity 1.024 (1.005-1.030); Sqamous Epithelial <5 /HPF (None Seen); Urine Bacteria None Seen /HPF (<20); Urine Bilirubin NEGATIVE (Negative); Urine Blood Negative (Negative); Urine Clarity Clear (Clear); Urine Color Light-Yellow (Yellow); Urine Culture Reflex Order NOT NEEDED; Urine Glucose NEGATIVE (Negative); Urine Ketones TRACE (Negative); Urine Microscopic Reflex YN ORDER UMIC; Urine Mucus Slight /HPF (None Seen); Urine Nitrite NEGATIVE (Negative); Urine Protein TRACE (Negative); Urine RBC <5 /HPF (None Seen); Urine Urobilinogen 2+ (Normal); Urine WBC <5 /HPF (<5); Urine pH 6.5 (5.0-7.0)
--- NOTE | 2023-12-14 | RAD REPORT ---
EXAM: CT Head Without Intravenous Contrast CLINICAL HISTORY: The patient is 38 years old and is Female; Headache;Visual disturbances TECHNIQUE: Axial computed tomography images of the head/brain without intravenous contrast. Sagittal and cor onal reformatted images were created and reviewed. This CT exam was performed using one or more of the following dose reduction techniques: automated exposure control, adjustment of the mA and/or kV according to patient size, and/or use of iterative reconstruction technique. COMPARISON: No relevant prior studies available. FINDINGS: BRAIN: Unremarkable. The sinha-white matter differentiation is preserved . No hemorrhage. No s ignificant white matter disease. No edema. No extra-axial fluid collections. VENTRICLES: Unremarkable. No ventriculomegaly. BONES/JOINTS: No acute fracture. SOFT TISSUES: Unremarkable. SINUSES: Unremarkable as visualized. No acute sinusitis. MASTOID AIR CELLS: Unremarkable as visualized. No mastoid effusion. ORBITS: Unremarkable as visualized. IMPRESSION: No acute intracranial findings. Electronically signed by: Rolanda Meneses MD 12/13/2023 11:53 PM CDT RP Due to temporary technical issues with the PACS/[employer] reporting system, reports are being cecille d by the in-house radiologist without review as a courtesy to ensure prompt reporting the interpreting radiologist is fully responsible for the content of the report. Transcribed Date/Time: 12/14/2023 12:00 AM
--- NOTE | 2023-12-14 00:10 | RAD REPORT ---
EXAM: Neck Angio (accession [id number]), Head angio (accession [id number]) CLINICAL INDICATION: 38-year-old female with headache and visual disturbance. COMPARISON: None. TECHNIQUE: CT angiography of the head and neck following dynamic bolus of intravenous contrast. MIP reformatted reconstructions were created. This exam was performed according to our departmental dose optimization program which includes use of automated exposure control, adjustment of the mA and/or kV according to patient size and/or use of iterative reconstruction technique. FINDINGS: CTA neck: Partially calcified atheromatous plaque of the right internal carotid artery without stenosis by NASC ET criteria. Patent flow opacification of the aortic arch origin right brachiocephalic, left common carotid, and l eft subclavian arteries. The bilateral vertebral artery origins are normal. Patent flow opacification through the bilateral common carotid arteries, carotid bifurcations, cervic al internal/external carotid, and vertebral arteries. CTA brain: Patent flow opacification through anterior circulation (bilateral petrous/cavernous/supraclinoid inte rnal carotid arteries, anterior and middle cerebral arteries), posterior circulation (vertebral-basilar, posterior-inferior cerebellar, anterior-inferior cerebellar, superior cerebellar, and posterior cerebral arteries), and distal intracranial vasculature. Patent flow opacification through a complete [id number] with a patent anterior communicating ar rosie and bilateral posterior communicating arteries. Normal superficial and deep intracranial venous drainage. No evidence of occlusive thrombus, dissection, or vascular malformation. IMPRESSION: 1. Patent enhancement of the intracranial circulation. 2. Patent enhancement of the cervical vasculature without stenosis by NASCET criteria. Electronically signed by: Nela Botello MD 12/14/2023 12:07 AM T Due to temporary technical issues with the PACS/[place] reporting system, reports are being cecille d by the in-house radiologist without review as a courtesy to ensure prompt reporting the interpreting radiologist is fully responsible for the content of the report. Transcribed Date/Time: 12/14/2023 12:10 AM
--- NOTE | 2023-12-14 00:10 | RAD REPORT ---
EXAM: Neck Angio (accession [id number]), Head angio (accession [id number]) CLINICAL INDICATION: 38-year-old female with headache and visual disturbance. COMPARISON: None. TECHNIQUE: CT angiography of the head and neck following dynamic bolus of intravenous contrast. MIP reformatted reconstructions were created. This exam was performed according to our departmental dose optimization program which includes use of automated exposure control, adjustment of the mA and/or kV according to patient size and/or use of iterative reconstruction technique. FINDINGS: CTA neck: Partially calcified atheromatous plaque of the right internal carotid artery without stenosis by NASC ET criteria. Patent flow opacification of the aortic arch origin right brachiocephalic, left common carotid, and l eft subclavian arteries. The bilateral vertebral artery origins are normal. Patent flow opacification through the bilateral common carotid arteries, carotid bifurcations, cervic al internal/external carotid, and vertebral arteries. CTA brain: Patent flow opacification through anterior circulation (bilateral petrous/cavernous/supraclinoid inte rnal carotid arteries, anterior and middle cerebral arteries), posterior circulation (vertebral-basilar, posterior-inferior cerebellar, anterior-inferior cerebellar, superior cerebellar, and posterior cerebral arteries), and distal intracranial vasculature. Patent flow opacification through a complete [id number] with a patent anterior communicating ar rosie and bilateral posterior communicating arteries. Normal superficial and deep intracranial venous drainage. No evidence of occlusive thrombus, dissection, or vascular malformation. IMPRESSION: 1. Patent enhancement of the intracranial circulation. 2. Patent enhancement of the cervical vasculature without stenosis by NASCET criteria. Electronically signed by: Nela Botello MD 12/14/2023 12:07 AM T Due to temporary technical issues with the PACS/[place] reporting system, reports are being cecille d by the in-house radiologist without review as a courtesy to ensure prompt reporting the interpreting radiologist is fully responsible for the content of the report. Transcribed Date/Time: 12/14/2023 12:10 AM
--- NOTE | 2023-12-14 00:10 | ER ---
Nurse's Notes [facility] Name: Sissy Brown Age: 38 yrs Sex: Female : 1985 Arrival Date: 12/13/2023 Time: 19:51 Bed 8 Private MD: Diagnosis: Unspecified disorder of binocular vision;Anemia, unspecified;Iron deficiency anemia secondary to blood loss (chronic) Presentation: 12/12 19:58 Chief complaint: Patient states: blurry vision on left side started last Wednesday, it tm6 passed, but it came back on right side. I went to eye doctor but she was not worried. Tonight, the same thing happened, but both of my eyes. It passed about 15 min later. I have been fatigued for about 1 month. I have almost passed out twice at work. I do have history of anemia. N/V. Abdominal cramping/knotting comes and goes, has gone on for about 1 month. Coronavirus screen: Client denies travel out of the [place] in the last 14 days. Ebola Screen: Patient negative for fever greater than or equal to 101.5 degrees Fahrenheit, and additional compatible Ebola Virus Disease symptoms Patient denies exposure to infectious person. Patient denies travel to an Ebola-affected area in the 21 days before illness onset. No symptoms or risks identified at this time. Initial Sepsis Screen: Does the patient meet any 2 criteria? No. Patient's initial sepsis screen is negative. Does the patient have a suspected source of infection? No. Patient's initial sepsis screen is negative. Risk Assessment: Do you want to hurt yourself or someone else? Patient reports no desire to harm self or others. Onset of symptoms was November 13, 2023. 19:58 Method Of Arrival: Ambulatory tm6 19:58 Acuity: SANTIAGO 3 tm6 Triage Assessment: 20:01 General: Appears in no apparent distress. Behavior is calm, cooperative. Pain: tm6 Complains of pain in abdomen Pain currently is 0 out of 10 on a pain scale. Quality of pain is described as crampy, Pain began one month ago. EENT: No signs and/or symptoms were reported regarding the EENT system. Neuro: Level of Consciousness is awake, alert, obeys commands, Oriented to person, place, time, situation, Reports blurred vision since for one week, comes and goes. Cardiovascular: Patient's skin is warm and dry. Respiratory: Airway is patent Respiratory effort is even, unlabored, Respiratory pattern is regular, symmetrical. GI: Reports lower abdominal pain, upper abdominal pain, nausea, vomiting. : No signs and/or symptoms were reported regarding the genitourinary system. Derm: No signs and/or symptoms reported regarding the dermatologic system. Musculoskeletal: Reports general fatigue and weakness x1 month. 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 - Infectious Disease History:: Denies. - Social history:: Smoking status: Reported history of juuling and/or vaping. Patient/guardian denies using alcohol. Screenin:42 [facility] ED Fall Risk Assessment (Adult) History of falling in the last 3 months, bp including since admission No falls in past 3 months (0 pts) Confusion or Disorientation No (0 pts) Intoxicated or Sedated No (0 pts) Impaired Gait No (0 pts) Mobility Assist Device Used No (0 pt) Altered Elimination No (0 pt) Score/Fall Risk Level 0 - 2 = Low Risk Oriented to surroundings, Maintained a safe environment, Educated pt \T\ family on fall prevention, incl call for assistance when getting out of bed, Assessed \T\ reinforced patient's understanding of fall precautions. Abuse screen: Denies threats or abuse. Denies injuries from another. Nutritional screening: No deficits noted. Tuberculosis screening: No symptoms or risk factors identified. Assessment: 20:42 General: Appears in no apparent distress. comfortable, Behavior is calm, cooperative. bp Pain: Denies pain. Neuro: No deficits noted. Rucker Agitation-Sedation Scale (RASS): 0 - Alert and Calm Level of Consciousness is awake, alert, obeys commands, Oriented to person, place, time, situation, Reports weakness. Cardiovascular: No deficits noted. Denies chest pain, shortness of breath, Capillary refill < 3 seconds Clubbing of nail beds is absent JVD is absent Patient's skin is warm and dry. Respiratory: No deficits noted. Airway is patent Respiratory effort is even, unlabored, Respiratory pattern is regular, symmetrical. GI: No deficits noted. No signs and/or symptoms were reported involving the gastrointestinal system. Abdomen is flat, non-distended, Patient currently denies abdominal pain, nausea, vomiting. : No deficits noted. No signs and/or symptoms were reported regarding the genitourinary system. EENT: No deficits noted. 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 Derm: No deficits noted. No signs and/or symptoms reported regarding the dermatologic system. Skin is intact, is healthy with good turgor, Skin is dry, Skin is normal, Skin temperature is warm. Musculoskeletal: No deficits noted. Circulation, motion, and sensation intact. Range of motion: intact in all extremities, Reports generalized weakness. 22:34 Reassessment: Patient appears in no apparent distress at this time. No changes from lg3 previously documented assessment. Patient and/or family updated on plan of care and expected duration. Pain level reassessed. Patient is alert, oriented x 3, equal unlabored respirations, skin warm/dry/pink. 23:42 Reassessment: Patient appears in no apparent distress at this time. No changes from bm8 previously documented assessment. Patient and/or family updated on plan of care and expected duration. Pain level reassessed. Patient is alert, oriented x 3, equal unlabored respirations, skin warm/dry/pink. Patient denies pain at this time. Patient states feeling better. Patient states symptoms have improved. Vital Signs: 19:57 BP 135 / 86; Pulse 92; Resp 19; Temp 99.3(O); Pulse Ox 100% on R/A; MAP 99 mmHg; Weight tm6 57.61 kg; Height 5 ft. 3 in. ; Pain 0/10; 22:34 BP 135 / 86; Pulse 89; Resp 16 S; Pulse Ox 99% on R/A; lg3 23:42 BP 126 / 86; Pulse 79; Resp 18; Temp 99.2; Pulse Ox 100% ; Pain 0/10; bm8 19:57 Body Mass Index 22.50 (57.61 kg, 160.02 cm) tm6 19:57 Pain Scale: Adult tm6 23:42 Pain Scale: Adult bm8 Hiko Coma Score: 23:42 Eye Response: spontaneous(4). Motor Response: obeys commands(6). Verbal Response: bm8 oriented(5). Total: 15. ED Course: 19:52 Patient arrived in ED. jj6 20:01 Triage completed. tm6 20:01 Arm band placed on right wrist. tm6 20:04 Sam Saucedo MD is Attending Physician. beatrice 20:28 Eugene Ortiz, RN is Primary Nurse. bp 20:42 Patient has correct armband on for positive identification. Placed in gown. Bed in low bp position. Call light in reach. Side rails up X 1. Client placed on continuous cardiac and pulse oximetry monitoring. NIBP monitoring applied. site monitor on. Door closed. Noise minimized. Warm blanket given. Pillow given. 20:42 Patient maintains SpO2 saturation greater than 95% on room air. bp 20:49 Inserted saline lock: 20 gauge in right antecubital area, using aseptic technique. ty Blood collected. Flushed with 10 mL NS. 20:49 Initial lab(s) drawn, by me, sent to lab. First set of blood cultures drawn by me, ty COVID swab sent to lab. Flu and/or RSV swab sent to lab. Strep swab sent to lab. 21:07 XRAY Chest (1 view) In Process Unspecified. EDMS 21:08 Second set of blood cultures drawn EKG done, by ED staff, reviewed by Sam Sacuedo MD.ty 21:13 Type And Screen Sent. ty 21:13 Flu Sent. ty 21:13 SARS RAPID Sent. ty 21:14 Strep Sent. ty 21:14 Lactate w/ 2H reflex if indic. Sent. ty 21:14 Blood Culture Adult (2) Sent. ty 21:14 Lipase Sent. ty 21:14 Basic Metabolic Panel Sent. ty 21:14 CBC with Diff Sent. ty 21:14 LFT's Sent. ty 21:14 Magnesium Sent. ty 21:14 Troponin HS Sent. ty 21:14 NT PRO-BNP Sent. ty 23:04 CT Neck Angio In Process Unspecified. EDMS 23:04 CT Head Brain wo Cont In Process Unspecified. EDMS 23:04 Head angio In Process Unspecified. EDMS 23:42 No provider procedures requiring assistance completed. bm8 12/13 00:09 Saurav Borrero MD is Referral Physician. beatrice 00:09 Hugo Coronel MD is Referral Physician. beatrice 00:34 Provided Education on: post er care. bm8 00:34 IV discontinued, intact, bleeding controlled, No redness/swelling at site. Pressure bm8 dressing applied. Administered Medications: 12/12 21:17 Drug: NS 0.9% IV 1000 ml IV at 1 bolus Per protocol; to be given as a bolus over 60 bp minutes Route: IV; Rate: 1 bolus; Site: left antecubital; 22:34 Follow up: Response: No adverse reaction; IV Status: Completed infusion; IV Intake: lg3 1000ml Medication: 20:42 VIS not applicable for this client. bp Intake: 22:34 IV: 1000ml; Total: 1000ml. lg3 Outcome: 12/13 00:09 Discharge ordered by . beatrice 00:34 Discharged to home ambulatory, bm8 00:34 Condition: good 00:34 Discharge instructions given to patient, Instructed on discharge instructions, follow up and referral plans. no drinking with medication, no driving heavy equipment, medication usage, safety practices, Demonstrated understanding of instructions, follow-up care, medications, Prescriptions given X 3, 00:35 Patient left the ED. bm8 Signatures: Dispatcher [employer] EDMS Sam Saucedo MD MD cha Peltier, Brian, RN RN Hoa Tolentino, RN RN lg3 Minna Chiang Tawney, RN RN tm6 Silvestre Christianson Brad, RN RN bm8
--- NOTE | 2023-12-14 00:10 | EDPHYS ---
Physician Documentation [facility] Name: Sissy Brown Age: 38 yrs Sex: Female : 1985 Arrival Date: 12/13/2023 Time: 19:51 Bed 8 Private MD: SANDRO Physician Sam Saucedo HPI: 12/12 22:22 This 38 yrs old Female presents to ER via Ambulatory with complaints of beatrice Blurred Vision, FATIGUE, General Weakness, Nausea, Abdominal Pain, Shortness Of Breath, Low Back Pain. 22:22 The patient presents to the emergency department with nausea, vomiting, that is beatrice intermittent. Onset: The symptoms/episode began/occurred 3 day(s) ago. Possible causes: unknown. The symptoms are aggravated by nothing. The symptoms are alleviated by nothing. Associated signs and symptoms: Pertinent positives: nausea, vomiting. Severity of symptoms: At their worst the symptoms were mild in the emergency department the symptoms have improved mildly. The patient has experienced similar episodes in the past, several times. 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 - Infectious Disease History:: Denies. - Social history:: Smoking status: Reported history of juuling and/or vaping. Patient/guardian denies using alcohol. ROS: 22:27 Constitutional: Negative for fever, chills, and weight loss, ENT: Negative for injury, beatrice pain, and discharge, Neck: Negative for injury, pain, and swelling, Cardiovascular: Negative for chest pain, palpitations, and edema, Respiratory: Negative for shortness of breath, cough, wheezing, and pleuritic chest pain, Abdomen/GI: Negative for abdominal pain, nausea, vomiting, diarrhea, and constipation, Back: Negative for injury and pain, : Negative for injury, bleeding, discharge, and swelling, MS/Extremity: Negative for injury and deformity, Skin: Negative for injury, rash, and discoloration, Neuro: Negative for headache, weakness, numbness, tingling, and seizure, Psych: Negative for depression, anxiety, suicide ideation, homicidal ideation, and hallucinations, Allergy/Immunology: Negative for hives, rash, and allergies, Endocrine: Negative for neck swelling, polydipsia, polyuria, polyphagia, and marked weight changes, 22:27 Eyes: Positive for blurry vision, Exam: 22:27 Constitutional: This is a well developed, well nourished patient who is awake, alert, beatrice and in no acute distress. Head/Face: Normocephalic, atraumatic. Eyes: Pupils equal round and reactive to light, extra-ocular motions intact. Lids and lashes normal. Conjunctiva and sclera are non-icteric and not injected. Cornea within normal limits. Periorbital areas with no swelling, redness, or edema. ENT: Nares patent. No nasal discharge, no septal abnormalities noted. Tympanic membranes are normal and external auditory canals are clear. Oropharynx with no redness, swelling, or masses, exudates, or evidence of obstruction, uvula midline. Mucous membranes moist. Neck: Trachea midline, no thyromegaly or masses palpated, and no cervical lymphadenopathy. Supple, full range of motion without nuchal rigidity, or vertebral point tenderness. No Meningismus. Chest/axilla: Normal chest wall appearance and motion. Nontender with no deformity. No lesions are appreciated. Cardiovascular: Regular rate and rhythm with a normal S1 and S2. No gallops, murmurs, or rubs. Normal PMI, no JVD. No pulse deficits. Respiratory: Lungs have equal breath sounds bilaterally, clear to auscultation and percussion. No rales, rhonchi or wheezes noted. No increased work of breathing, no retractions or nasal flaring. Abdomen/GI: Soft, non-tender, with normal bowel sounds. No distension or tympany. No guarding or rebound. No evidence of tenderness throughout. Back: No spinal tenderness. No costovertebral tenderness. Full range of motion. Skin: Warm, dry with normal turgor. Normal color with no rashes, no lesions, and no evidence of cellulitis. MS/ Extremity: Pulses equal, no cyanosis. Neurovascular intact. Full, normal range of motion. Neuro: Awake and alert, GCS 15, oriented to person, place, time, and situation. Cranial nerves II-XII grossly intact. Motor strength 5/5 in all extremities. Sensory grossly intact. Cerebellar exam normal. Normal gait. Psych: Awake, alert, with orientation to person, place and time. Behavior, mood, and affect are within normal limits. 22:27 ECG was reviewed by the Attending Physician. Vital Signs: 19:57 BP 135 / 86; Pulse 92; Resp 19; Temp 99.3(O); Pulse Ox 100% on R/A; MAP 99 mmHg; Weight tm6 57.61 kg; Height 5 ft. 3 in. ; Pain 0/10; 22:34 BP 135 / 86; Pulse 89; Resp 16 S; Pulse Ox 99% on R/A; lg3 23:42 BP 126 / 86; Pulse 79; Resp 18; Temp 99.2; Pulse Ox 100% ; Pain 0/10; bm8 19:57 Body Mass Index 22.50 (57.61 kg, 160.02 cm) tm6 19:57 Pain Scale: Adult tm6 23:42 Pain Scale: Adult bm8 [place] Coma Score: 23:42 Eye Response: spontaneous(4). Motor Response: obeys commands(6). Verbal Response: bm8 oriented(5). Total: 15. MDM: 20:04 Medical Screening Exam initiated beatrice 22:29 Differential diagnosis: viral gastroenteritis, gastroenteritis. Data reviewed: vital beatrice signs, nurses notes, lab test result(s), EKG, radiologic studies, CT scan, plain films. Consideration of Admission/Observation Escalation of care including admission/observation considered. I considered the following discharge prescriptions or medication management in the emergency department Medications were administered in the Emergency Department. See MAR. Independent interpretation of the following test(s) in the Emergency Department EKG: See my EKG interpretation above. Test considered but Not performed: MRI: no mri brain. Historians other than the Patient: pt well informed. Care significantly affected by the following chronic conditions: none. 12/12 20:14 Order name: Basic Metabolic Panel; Complete Time: 22:20 [facility] 12/12 20:14 Order name: CBC with Diff; Complete Time: 22:20 [facility] 12/12 20:14 Order name: LFT's; Complete Time: 22:20 [facility] 12/12 20:14 Order name: Magnesium; Complete Time: 22:20 [facility] 12/12 20:14 Order name: NT PRO-BNP; Complete Time: 22:20 [facility] 12/12 20:14 Order name: PT-INR; Complete Time: 22:20 [facility] 12/12 20:14 Order name: Troponin HS; Complete Time: 22:20 [facility] 12/12 20:14 Order name: Lipase; Complete Time: 22:20 [facility] 12/12 20:14 Order name: Urinalysis w/ reflexes; Complete Time: 23:48 [facility] 12/12 20:14 Order name: Blood Culture Adult (2) [facility] 12/12 20:14 Order name: Lactate w/ 2H reflex if indic.; Complete Time: 22:20 [facility] 12/12 20:14 Order name: Strep; Complete Time: 22:20 [facility] 12/12 20:14 Order name: SARS RAPID; Complete Time: 22:20 [facility] 12/12 20:14 Order name: Flu; Complete Time: 22:20 [facility] 12/12 20:14 Order name: Type And Screen [facility] 12/12 21:45 Order name: Throat Culture [facility] 12/12 20:14 Order name: XRAY Chest (1 view); Complete Time: 22:20 [facility] 12/12 22:21 Order name: CT Neck Angio [facility] 12/12 22:21 Order name: CT Head Brain wo Cont; Complete Time: 00:09 [facility] 12/12 22:27 Order name: Head angio [facility] 12/12 20:14 Order name: Cardiac monitoring; Complete Time: 21:17 [facility] 12/12 20:14 Order name: EKG - Nurse/Tech; Complete Time: 21:14 [facility] 12/12 20:14 Order name: IV Saline Lock; Complete Time: 21:14 [facility] 12/12 20:14 Order name: Labs collected and sent; Complete Time: 21:17 [facility] 12/12 20:14 Order name: O2 Per Protocol; Complete Time: 21:17 [facility] 12/12 20:14 Order name: O2 Sat Monitoring; Complete Time: 21:17 [facility] EC:27 Rate is 74 beats/min. Rhythm is regular. QRS [place] is Normal. [place] interval is normal. QRS beatrice interval is normal. QT interval is normal. No Q waves. T waves are Normal. No ST changes noted. Clinical impression: NSR w/ Non-specific ST/T Changes and No evidence of ischemia. Interpreted by me. Reviewed by me. Administered Medications: 21:17 Drug: NS 0.9% IV 1000 ml IV at 1 bolus Per protocol; to be given as a bolus over 60 bp minutes Route: IV; Rate: 1 bolus; Site: left antecubital; 22:34 Follow up: Response: No adverse reaction; IV Status: Completed infusion; IV Intake: lg3 1000ml Disposition Summary: 12/14/23 00:09 Discharge Ordered Notes: Location: Home beatrice Problem: new beatrice Symptoms: have improved beatrice Condition: Stable beatrice Diagnosis - Unspecified disorder of binocular vision beatrice - Anemia, unspecified beatrice - Iron deficiency anemia secondary to blood loss (chronic) beatrice Followup: beatrice - With: Private Physician - When: 2 - 3 days - Reason: Recheck today's complaints, Continuance of care, Re-evaluation by your physician Followup: beatrice - With: Saurav Borrero MD - When: 2 - 3 days - Reason: Recheck today's complaints, Re-evaluation by your physician Followup: beatrice - With: Hugo Coronel MD - When: 2 - 3 days - Reason: Recheck today's complaints, Re-evaluation by your physician Discharge Instructions: - Discharge Summary Sheet beatrice - Iron Deficiency Anemia, Adult beatrice - Anemia beatrice - Blurred Vision, Adult beatrice - Iron-Rich Diet beatrice - Weakness beatrice - Weakness, [id number] beatrice - Iron Deficiency Anemia, Adult, [id number] beatrice Forms: - Medication Reconciliation Form beatrice - Antibiotic Education beatrice - Prescription Opioid Use beatrice - Patient Portal Instructions [facility] - Leadership Thank You Letter [facility] Prescriptions: - Ferrous Sulfate 325 mg (65 mg Iron) Oral Tablet - take 1 tablet ORAL route every 8 hours; 90 tablet; Refills: 0, Product beatrice Selection Permitted - Folic Acid 1 mg Oral Tablet - take 1 tablet ORAL route once daily; 30 tablet; Refills: 0, Product Selection beatrice Permitted Signatures: Dispatcher [employer] EDMS Sam Saucedo MD MD cha Peltier, Brian RN Milton Rudd RN RN [id number] Hoa Melo RN [id number] Corrections: (The following items were deleted from the chart) 20:15 20:15 BASIC METABOLIC PANEL+C.LAB.BRZ ordered. EDMS EDMS 20:15 20:15 CBC+H.LAB.BRZ ordered. EDMS EDMS 20:15 20:15 HEPATIC FUNCTION+C.LAB.BRZ ordered. EDMS EDMS 20:15 20:15 MAGNESIUM+C.LAB.BRZ ordered. EDMS EDMS 20:15 20:15 PROBNP+C.LAB.BRZ ordered. EDMS EDMS 20:15 20:15 PROTIME (+INR)+COAG.LAB.BRZ ordered. EDMS EDMS 20:15 20:15 Troponin High Sensitivity+C.LAB.BRZ ordered. EDMS EDMS 20:15 20:15 LIPASE+C.LAB.BRZ ordered. EDMS EDMS 20:15 20:15 Urinalysis+U.LAB.BRZ ordered. EDMS EDMS 20:15 20:15 BLOOD CULTURE*+BA.LAB.BRZ ordered. EDMS EDMS 20:15 20:15 LACTATE+C.LAB.BRZ ordered. EDMS EDMS 20:15 20:15 Group A Streptococcus Rapid Sc+BA.LAB.BRZ ordered. EDMS EDMS 20:15 20:15 SARS-COV-2 Antigen Rapid+I.LAB.BRZ ordered. EDMS EDMS 20:15 20:15 Influenza Screen (A \T\ B)+BA.LAB.BRZ ordered. EDMS EDMS 20:15 20:15 TYPE AND SCREEN+BB.LAB.BRZ ordered. EDMS EDMS
[2023-12-14 06:00] VITALS: BP 126/86; TEMP 99.2; O2SAT 100
--- NOTE | 2023-12-16 12:01 | EKG ---
Test Date: 2023-12-13 Test Time: 21:04:37 Reliability Technologist: LA MEASUREMENT RESULTS: Intervals: Rate: 74 ND: 118 QRSD: 90 QT: 390 QTc: 432 Hartly: P: 72 ND: 118 QRS: 68 T: 66 INTERPRETIVE STATEMENTS: Normal sinus rhythm Normal ECG Compared to ECG 07/22/2020 19:11:32 ST (T wave) deviation no longer present Electronically Signed On 12-16-23 11:54:14 CDT by Mason Weber
== END 2023-12-14 00:35 | disposition home or self-care (01) ==
LOC: ER 19:51
DX: D50.0 Iron deficiency anemia secondary to blood loss (chronic) (principal)
CPT/HCPCS: 36415; 70450; 70496; 70498; 71045; 80048; 80076; 81001; 83605; 83690; 83735; 83880; 84484; 85025; 85610; 86850; 86900; 86901; 87040; 87070; 87081; 87804; 87811; 93005; 96360; 99285; J7030; Q9967